=== PATIENT | male | born 1975 | race Hispanic/Latino ===

== ENCOUNTER 2021-01-30 13:28 | Inpatient (IN) | payer OTHER ==
[~2021-01-30] VITALS: Ht 175.3 cm; Wt 98.1 kg
[2021-01-30 13:54] LABS: BASOPHILS % (AUTO) 0.4 % (0.0-5.0); HEMATOCRIT 45.4 % (42-54); LYMPHOCYTES % (AUTO) 6.1 % (21.0-51.0); MEAN CORPUSCULAR HEMOGLOBIN 27.9 pg (27.0-33.0); MEAN CORPUSCULAR HGB CONC 33.7 g/dL (32.0-36.0); MEAN CORPUSCULAR VOLUME 82.7 fL (79-99); MONOCYTES % (AUTO) 6.5 % (3.0-13.0); NEUTROPHILS % (AUTO) 86.6 % (40.0-77.0); PLATELET COUNT (AUTO) 353 K/uL (130-400); RED BLOOD CELL COUNT(AUTO) 5.49 MIL/uL (4.50-6.20); WHITE BLOOD COUNT (AUTO) 16.4 K/uL (4.8-10.8)
[2021-01-30 14:05] LABS: CARBON DIOXIDE 25 mmol/L (21-32); CHLORIDE 97 mmol/L (101-111); CREATININE 2.4 mg/dL (0.5-1.5); GLOMERULAR FILTR. RATE CALC 31 mL/min (>60); GLUCOSE,RANDOM 316 mg/dL (70-105); POTASSIUM 5.4 mmol/L (3.5-5.1); SODIUM SERUM 133 mmol/L (136-145); UREA NITROGEN, BLOOD 59 mg/dL (7-18)
[2021-01-30 14:25] LABS: ALANINE AMINOTRANSFERASE 22 U/L (12-78); ALBUMIN 4.5 g/dL (3.5-5.0); ASPARTATE AMINOTRANSFERASE 12 U/L (10-37); BILIRUBIN,TOTAL 0.5 mg/dL (0.2-1.0); CREATINE KINASE, TOTAL 101 U/L (21-232); LIPASE 241 U/L (114-286); MYOGLOBIN 111 ng/mL (10-92); TOTAL PROTEIN, SERUM 9.3 g/dL (6.0-8.3); TROPONIN I < 0.04 ng/mL (0.00-0.06)
[2021-01-30 14:26] VITALS: BP 136/84
[2021-01-30] MEDS ORDERED: CHLORPROMAZINE HCL 25 MG/ML 1ML AMP IM SCH (15:00)
[2021-01-30] MEDS ORDERED: FAMOTIDINE 20MG VIAL IV ONE (15:00)
[2021-01-30] MEDS ORDERED: 0.9%NACL 1000ML 1,000 ML IV ONE (15:00)
[2021-01-30] MEDS ORDERED: ONDANSETRON 4MG INJ IVP ONE (15:00)
[2021-01-30 15:02] LABS: INR 1.03 (0.85-1.15); PROTHROMBIN TIME 11.2 SEC (9.6-11.6)
[2021-01-30 15:16] LABS: AMPHET/METH SCREEN,URINE NEGATIVE (NEGATIVE); BARBITURATE SCREEN, URINE NEGATIVE (NEGATIVE); BENZODIAZEPINES SCREEN,URINE NEGATIVE (NEGATIVE); CANNABINOID SCREEN,URINE NEGATIVE (NEGATIVE); COCAINE SCREEN,URINE POSITIVE (NEGATIVE); OPIATE SCREEN,URINE NEGATIVE (NEGATIVE); PHENCYCLIDINE SCREEN,URINE NEGATIVE (NEGATIVE)
[2021-01-30 16:20] VITALS: BP 102/52
[2021-01-30 18:52] VITALS: BP 94/53
[2021-01-30] MEDS ORDERED: ACETAMINOPHEN 325 MG TAB PO PRN ×2 (19:30)
[2021-01-30] MEDS ORDERED: ONDANSETRON 4MG INJ IV PRN (19:30)
[2021-01-30 20:01] LABS: HEMOGLOBIN A1C 10.6 % (4.0-6.0)
[2021-01-30 20:07] VITALS: BP 100/62
[2021-01-30 20:09] LABS: CREATINE KINASE, TOTAL 353 U/L (21-232); LIPASE 136 U/L (114-286); MYOGLOBIN 472 ng/mL (10-92); TROPONIN I < 0.04 ng/mL (0.00-0.06)
[2021-01-30] MEDS: 0.9%NACL 1000ML 1,000 ML IV SCH (20:43)
[2021-01-30 21:39] LABS: PROTEIN,URINE RANDOM 50.5 mg/dL (0-11.9)
[2021-01-30] MEDS: INSULIN HUMULIN R 100 UNIT/ML 3ML SQ SCH (22:00)
[2021-01-30] MEDS: FAMOTIDINE 20MG VIAL IV SCH (22:00)
[2021-01-30 23:53] VITALS: BP 97/77
[2021-01-31] MEDS: 0.9%NACL 1000ML 1,000 ML IV SCH ×4 (02:42→21:11)
[2021-01-31 02:47] VITALS: BP 115/72
[2021-01-31 03:59] VITALS: BP 137/72
[2021-01-31] MEDS: INSULIN HUMULIN R 100 UNIT/ML 3ML SQ SCH ×4 (06:44→21:11)
[2021-01-31 07:13] LABS: CREATINE KINASE, TOTAL 310 U/L (21-232); MYOGLOBIN 115 ng/mL (10-92); TROPONIN I < 0.04 ng/mL (0.00-0.06)
[2021-01-31 08:38] VITALS: BP 135/87
[2021-01-31] MEDS: ENOXAPARIN SODIUM 30 MG/0.3 ML SQ SCH (09:18)
[2021-01-31 09:42] LABS: BASOPHILS % (AUTO) 0.6 % (0.0-5.0); EOSINOPHILS % (AUTO) 0.5 % (0.0-8.0); HEMATOCRIT 38.7 % (42-54); LYMPHOCYTES % (AUTO) 21.3 % (21.0-51.0); MEAN CORPUSCULAR HEMOGLOBIN 27.9 pg (27.0-33.0); MEAN CORPUSCULAR HGB CONC 32.8 g/dL (32.0-36.0); MEAN CORPUSCULAR VOLUME 85.1 fL (79-99); MONOCYTES % (AUTO) 9.8 % (3.0-13.0); NEUTROPHILS % (AUTO) 67.5 % (40.0-77.0); PLATELET COUNT (AUTO) 270 K/uL (130-400); RED BLOOD CELL COUNT(AUTO) 4.55 MIL/uL (4.50-6.20); RED CELL DISTRIBUTION WIDTH 13.1 % (11.0-15.5); WHITE BLOOD COUNT (AUTO) 11.9 K/uL (4.8-10.8)
[2021-01-31 09:52] LABS: CREATININE 1.6 mg/dL (0.5-1.5); POTASSIUM 4.7 mmol/L (3.5-5.1)
[2021-01-31] MEDS: INSULIN GLARGINE 100 UNITS/ML 10 ML VIAL SQ SCH (11:12)
[2021-01-31 11:40] LABS: CREATINE KINASE, TOTAL 264 U/L (21-232); MYOGLOBIN 72 ng/mL (10-92); TROPONIN I < 0.04 ng/mL (0.00-0.06)
[2021-01-31 12:01] VITALS: BP 136/84
[2021-01-31 16:25] VITALS: BP 158/90
[2021-01-31] MEDS ORDERED: LACTULOSE 20 GM/30 ML UDCUP PO PRN (17:00)
[2021-01-31 19:20] VITALS: BP 127/80
[2021-01-31] MEDS: FAMOTIDINE 20MG VIAL IV SCH (21:11)
[2021-01-31] MEDS ORDERED: LOVA20TA3 PO (23:20)
[2021-01-31] MEDS ORDERED: LISI-809 PO (23:20)
[2021-01-31] MEDS ORDERED: INSU10VI3 SQ (23:20)
[2021-01-31] MEDS ORDERED: METF-446 PO (23:20)
[2021-02-01] VITALS (8 sets, daily range): BP systolic 127–171; BP diastolic 74–91
[2021-02-01] MEDS ORDERED: HYDRALAZINE 20MG/ML VIAL ONE (00:50)
[2021-02-01] MEDS ORDERED: HYDRALAZINE 20MG/ML VIAL IM PRN (01:00)
[2021-02-01] MEDS: 0.9%NACL 1000ML 1,000 ML IV SCH ×2 (04:58→11:30)
[2021-02-01 05:21] LABS: BASOPHILS % (AUTO) 0.5 % (0.0-5.0); EOSINOPHILS % (AUTO) 0.5 % (0.0-8.0); HEMATOCRIT 39.7 % (42-54); LYMPHOCYTES % (AUTO) 20.5 % (21.0-51.0); MEAN CORPUSCULAR HEMOGLOBIN 27.6 pg (27.0-33.0); MEAN CORPUSCULAR VOLUME 83.6 fL (79-99); MONOCYTES % (AUTO) 10.1 % (3.0-13.0); NEUTROPHILS % (AUTO) 68.1 % (40.0-77.0); PLATELET COUNT (AUTO) 284 K/uL (130-400); RED BLOOD CELL COUNT(AUTO) 4.75 MIL/uL (4.50-6.20); RED CELL DISTRIBUTION WIDTH 12.7 % (11.0-15.5); WHITE BLOOD COUNT (AUTO) 12.9 K/uL (4.8-10.8)
[2021-02-01 05:34] LABS: CREATININE 1.1 mg/dL (0.5-1.5); PHOSPHORUS 2.6 mg/dL (2.5-4.9); POTASSIUM 4.2 mmol/L (3.5-5.1)
[2021-02-01] MEDS: INSULIN HUMULIN R 100 UNIT/ML 3ML SQ SCH ×4 (06:25→21:11)
[2021-02-01] MEDS: ENOXAPARIN SODIUM 30 MG/0.3 ML SQ SCH (08:03)
[2021-02-01] MEDS: INSULIN GLARGINE 100 UNITS/ML 10 ML VIAL SQ SCH (08:06)
[2021-02-01] MEDS ORDERED: POLYETHYLENE GLYCOL 3350 17 GM POWD.PACK PO SCH (11:00)
[2021-02-01] MEDS ORDERED: AMLODIPINE 5 MG TAB PO SCH (11:00)
[2021-02-01] MEDS: CEFTRIAXONE 1G VIAL IVP SCH (17:24)
[2021-02-01] MEDS ORDERED: BACLOFEN 10 MG TABLET PO SCH (18:30)
[2021-02-01] MEDS: BACLOFEN 10 MG TABLET PO SCH (21:08)
[2021-02-01] MEDS: FAMOTIDINE 20MG VIAL IV SCH (21:08)
[2021-02-01] MEDS: SIMVASTATIN 20 MG TABLET PO SCH (21:08)
[2021-02-02 04:44] VITALS: BP 129/87
[2021-02-02] MEDS: INSULIN HUMULIN R 100 UNIT/ML 3ML SQ SCH ×4 (06:41→22:12)
[2021-02-02 07:00] VITALS: BP 142/84
[2021-02-02] MEDS: INSULIN GLARGINE 100 UNITS/ML 10 ML VIAL SQ SCH (09:51)
[2021-02-02] MEDS: AMLODIPINE 5 MG TAB PO SCH (09:55)
[2021-02-02] MEDS: BACLOFEN 10 MG TABLET PO SCH ×2 (09:55→22:10)
[2021-02-02] MEDS: LISINOPRIL 5 MG TABLET PO SCH (09:55)
[2021-02-02] MEDS: ENOXAPARIN SODIUM 30 MG/0.3 ML SQ SCH (10:00)
[2021-02-02 11:00] VITALS: BP 137/84
[2021-02-02 15:00] VITALS: BP 125/77
[2021-02-02] MEDS: CEFTRIAXONE 1G VIAL IVP SCH (17:13)
[2021-02-02 19:56] VITALS: BP 147/82
[2021-02-02] MEDS ORDERED: METFORMIN HCL 500 MG TABLET PO ONE (20:00)
[2021-02-02] MEDS ORDERED: METFORMIN HCL 500 MG TABLET ONE (22:06)
[2021-02-02] MEDS: FAMOTIDINE 20MG VIAL IV SCH (22:10)
[2021-02-02] MEDS: SIMVASTATIN 20 MG TABLET PO SCH (22:10)
[2021-02-02 23:48] VITALS: BP 131/84
[2021-02-03 04:02] VITALS: BP 133/81
[2021-02-03 06:34] LABS: BASOPHILS % (AUTO) 0.7 % (0.0-5.0); EOSINOPHILS % (AUTO) 0.8 % (0.0-8.0); HEMATOCRIT 40.8 % (42-54); LYMPHOCYTES % (AUTO) 23.9 % (21.0-51.0); MEAN CORPUSCULAR HEMOGLOBIN 27.8 pg (27.0-33.0); MEAN CORPUSCULAR HGB CONC 32.1 g/dL (32.0-36.0); MEAN CORPUSCULAR VOLUME 86.4 fL (79-99); MONOCYTES % (AUTO) 8.4 % (3.0-13.0); NEUTROPHILS % (AUTO) 65.7 % (40.0-77.0); PLATELET COUNT (AUTO) 267 K/uL (130-400); RED BLOOD CELL COUNT(AUTO) 4.72 MIL/uL (4.50-6.20); RED CELL DISTRIBUTION WIDTH 12.6 % (11.0-15.5); WHITE BLOOD COUNT (AUTO) 10.2 K/uL (4.8-10.8)
[2021-02-03 06:39] LABS: MAGNESIUM 1.5 mg/dL (1.80-2.40); POTASSIUM 4.3 mmol/L (3.5-5.1)
[2021-02-03] MEDS: INSULIN HUMULIN R 100 UNIT/ML 3ML SQ SCH (07:20)
[2021-02-03] MEDS ORDERED: METFORMIN HCL 500 MG TABLET PO SCH (08:00)
[2021-02-03] MEDS: INSULIN GLARGINE 100 UNITS/ML 10 ML VIAL SQ SCH (08:23)
[2021-02-03] MEDS: LISINOPRIL 5 MG TABLET PO SCH (08:24)
[2021-02-03] MEDS: BACLOFEN 10 MG TABLET PO SCH (08:24)
[2021-02-03] MEDS: ENOXAPARIN SODIUM 30 MG/0.3 ML SQ SCH (08:25)
[2021-02-03] MEDS: AMLODIPINE 5 MG TAB PO SCH (08:25)
[2021-02-03 08:31] VITALS: BP 139/78
[2021-02-03] MEDS ORDERED: MAGNESIUM 2GM PREMIX 50ML 50 ML IV PRN (09:00)
[2021-02-03] MEDS ORDERED: MAGNESIUM OXIDE 400 MG TABLET PO SCH (09:00)
[2021-02-03] MEDS ORDERED: MAGN400C PO (11:26)
[2021-02-03 11:39] VITALS: BP 129/85
[2021-02-03] MEDS ORDERED: AMOX-426 PO (11:44)
== END 2021-02-03 12:54 | disposition home or self-care (01) | DRG 683 ==
LOC: EDH 13:28 → EDHIP 13:29 → UNDOADMIN 13:29 → EDHIP 01-31 03:47 → 4DH 01-31 03:47
PROVIDERS: ADMIT Internal Medicine; ATTEND Internal Medicine
DX: N17.9 Acute kidney failure, unspecified (principal); E87.1 Hypo-osmolality and hyponatremia; D72.829 Elevated white blood cell count, unspecified; E87.5 Hyperkalemia; E11.65 Type 2 diabetes mellitus with hyperglycemia; E11.22 Type 2 diabetes mellitus with diabetic chronic kidney disease; I12.9 Hypertensive chronic kidney disease with stage 1 through stage 4 chronic kidney disease, or unspecified chronic kidney disease; N18.9 Chronic kidney disease, unspecified; F14.10 Cocaine abuse, uncomplicated; E86.1 Hypovolemia; E87.8 Other disorders of electrolyte and fluid balance, not elsewhere classified; I16.0 Hypertensive urgency; N41.9 Inflammatory disease of prostate, unspecified; E83.42 Hypomagnesemia; E86.0 Dehydration
CPT/HCPCS: 36415; 71045; 74176; 76770; 80048; 80053; 80305; 82306; 82550; 82570; 82948; 83036; 83605; 83690; 83735; 83874; 83970; 84100; 84145; 84156; 84300; 84484; 84550; 85025; 85610; 86140; 87077; 87088; 87186; 93005; 93925; G0378; J0360; J0696; J1650; J1815; J2405; J3230; J3475; J3490; J7030

== ENCOUNTER 2022-12-27 20:48 | Emergency (ER) | payer SELFPAY ==
[~2022-12-27] VITALS: Ht 167.6 cm; Wt 104.3 kg
[~2022-12-27 20:48] MED LIST: AMOX-426 PO; CHLO25TA68 PO; DICL50TA9 PO; DICY20TA2 PO; GABA300C PO; INSU10VI3 SQ; LISI20TA24 PO; LISI5TAB21 PO; LOVA20TA3 PO; MAGN400C PO; METF-446 PO; PANT40TA54 PO
[2022-12-27 21:03] LABS: BASOPHILS % (AUTO) 0.6 % (0.0-5.0); EOSINOPHILS % (AUTO) 0.3 % (0.0-8.0); HEMATOCRIT 44.4 % (42-54); LYMPHOCYTES % (AUTO) 17.5 % (21.0-51.0); MEAN CORPUSCULAR HEMOGLOBIN 27.6 pg (27.0-33.0); MEAN CORPUSCULAR VOLUME 86.2 fL (79-99); MONOCYTES % (AUTO) 6.2 % (3.0-13.0); NEUTROPHILS % (AUTO) 74.9 % (40.0-77.0); PLATELET COUNT (AUTO) 298 K/uL (130-400); RED BLOOD CELL COUNT(AUTO) 5.15 MIL/uL (4.50-6.20); RED CELL DISTRIBUTION WIDTH 13.7 % (11.0-15.5); WHITE BLOOD COUNT (AUTO) 12.8 K/uL (4.8-10.8)
[2022-12-27 21:14] LABS: CREATININE 1.1 mg/dL (0.5-1.5); POTASSIUM 4.2 mmol/L (3.5-5.1)
[2022-12-27 21:19] LABS: ALBUMIN 3.5 g/dL (3.5-5.0); TOTAL PROTEIN, SERUM 7.9 g/dL (6.0-8.3)
[2022-12-27] MEDS ORDERED: NITROGLYCERIN 0.4 MG SL TAB SL PRN (22:00)
[2022-12-27] MEDS ORDERED: ASPIRIN 325MG TAB PO ONE (22:00)
[2022-12-27] MEDS ORDERED: METOCLOPRAMIDE 10 MG TABLET PO ONE (22:00)
[2022-12-27 22:13] LABS: LIPASE 125 U/L (114-286)
[2022-12-27] MEDS ORDERED: MAG/ALUM/SIMETH 30 ML UDCUP ONE (22:57)
[2022-12-27] MEDS ORDERED: LIDOCAINE HCL 2% VISCOUS 15 ML UDCUP PO ONE (23:00)
[2022-12-27] MEDS ORDERED: 0.9%NACL 1000ML 1,000 ML IV ONE (23:00)
[2022-12-27] MEDS ORDERED: NITROGLYCERIN 1GM OINT 1 INCH/1GM TD ONE (23:00)
[2022-12-27] MEDS ORDERED: FAMOTIDINE 20MG VIAL IV ONE (23:00)
[2022-12-27] MEDS ORDERED: INSULIN HUMULIN R 100 UNIT/ML 3ML IV ONE (23:30)
[2022-12-28 00:54] LABS: APPEARANCE,URINE CLEAR (CLEAR); BILIRUBIN,URINE NEGATIVE (NEGATIVE); COLOR,URINE LIGHT-YELLOW (YELLOW); GLUCOSE, URINE (UA) >=1000 mg/dL (NEGATIVE); KETONES,URINE NEGATIVE (NEGATIVE); LEUKOCYTE ESTERASE ,URINE NEGATIVE Leu/uL (NEGATIVE); NITRATE,URINE NEGATIVE (NEGATIVE); OCCULT BLOOD,URINE NEGATIVE (NEGATIVE); PROTEIN,URINE NEGATIVE (NEGATIVE); UROBILINOGEN,URINE 0.2 mg/dL (0.2-1.0)
[2022-12-28 00:59] LABS: MUCUS,URINE RARE LPF (None Seen); RBC,URINE 0-1 /HPF (0-1); SQUAMOUS EPITHELIAL CELL,UR RARE /HPF (0-2); WBC,URINE 0-1 /HPF (0-1)
[2022-12-28 01:11] LABS: AMPHET/METH SCREEN,URINE NEGATIVE (NEGATIVE); BARBITURATE SCREEN, URINE NEGATIVE (NEGATIVE); BENZODIAZEPINES SCREEN,URINE NEGATIVE (NEGATIVE); CANNABINOID SCREEN,URINE NEGATIVE (NEGATIVE); COCAINE SCREEN,URINE POSITIVE (NEGATIVE); OPIATE SCREEN,URINE NEGATIVE (NEGATIVE); PHENCYCLIDINE SCREEN,URINE NEGATIVE (NEGATIVE)
[2022-12-28] MEDS ORDERED: METO-296 PO (01:45)
[2022-12-28] MEDS ORDERED: NITR0.4T50 SL (01:45)
[2022-12-28] MEDS ORDERED: ASPI-1005 PO (01:45)
[2022-12-28] MEDS ORDERED: LORAZEPAM 2 MG/ML 1 ML VIAL IVP ONE (02:00)
[2022-12-28 03:12] VITALS: BP 125/80
== END 2022-12-28 03:15 | disposition home or self-care (01) ==
LOC: EDH 20:48
DX: F14.90 Cocaine use, unspecified, uncomplicated (principal); I20.8 Other forms of angina pectoris; I10 Essential (primary) hypertension; E11.9 Type 2 diabetes mellitus without complications; E78.00 Pure hypercholesterolemia, unspecified; F17.200 Nicotine dependence, unspecified, uncomplicated; Z90.49 Acquired absence of other specified parts of digestive tract; Z98.890 Other specified postprocedural states
CPT/HCPCS: 99285; 96374; 71045; 96361 ×2; 96375 ×2; 84484 ×2; 80053; 80305; 83690; 85025; 36415; 93005 ×2; 81001; J1815; J3490; J7030; J2060

== ENCOUNTER 2023-01-26 21:03 | Emergency (ER) | payer OTHER ==
[~2023-01-26] VITALS: Ht 167.6 cm; Wt 94.3 kg
[~2023-01-26 21:03] MED LIST changes: +ASPI-1005 PO; +METO-296 PO; +NITR0.4T50 SL
[2023-01-26 23:02] VITALS: BP 110/54
[2023-01-26 23:32] LABS: APPEARANCE,URINE CLEAR (CLEAR); BILIRUBIN,URINE NEGATIVE (NEGATIVE); COLOR,URINE YELLOW (YELLOW); GLUCOSE, URINE (UA) >=1000 mg/dL (NEGATIVE); KETONES,URINE 5 mg/dL (NEGATIVE); LEUKOCYTE ESTERASE ,URINE 25 Leu/uL (NEGATIVE); NITRATE,URINE NEGATIVE (NEGATIVE); OCCULT BLOOD,URINE NEGATIVE (NEGATIVE); PH,URINE 5.5 (5.0-8.0); PROTEIN,URINE 50 mg/dL (NEGATIVE); UROBILINOGEN,URINE 0.2 mg/dL (0.2-1.0)
[2023-01-26 23:35] LABS: MUCUS,URINE RARE LPF (None Seen); SQUAMOUS EPITHELIAL CELL,UR RARE /HPF (0-2)
[2023-01-27] MEDS ORDERED: ONDANSETRON ODT 4MG TAB SL ONE (01:00)
[2023-01-27 01:22] LABS: BASOPHILS % (AUTO) 0.6 % (0.0-5.0); EOSINOPHILS % (AUTO) 0.1 % (0.0-8.0); LYMPHOCYTES % (AUTO) 11.1 % (21.0-51.0); MEAN CORPUSCULAR HEMOGLOBIN 28.1 pg (27.0-33.0); MEAN CORPUSCULAR HGB CONC 33.1 g/dL (32.0-36.0); MONOCYTES % (AUTO) 4.8 % (3.0-13.0); PLATELET COUNT (AUTO) 382 K/uL (130-400); RED BLOOD CELL COUNT(AUTO) 5.65 MIL/uL (4.50-6.20); RED CELL DISTRIBUTION WIDTH 13.6 % (11.0-15.5); WHITE BLOOD COUNT (AUTO) 13.9 K/uL (4.8-10.8)
[2023-01-27 01:30] LABS: CREATININE 1.7 mg/dL (0.5-1.5); POTASSIUM 4.4 mmol/L (3.5-5.1)
[2023-01-27 01:35] LABS: ALBUMIN 4.1 g/dL (3.5-5.0); TOTAL PROTEIN, SERUM 8.7 g/dL (6.0-8.3)
[2023-01-27] MEDS ORDERED: ONDANSETRON 4MG INJ IVP ONE (02:00)
[2023-01-27] MEDS ORDERED: 0.9%NACL 1000ML 1,000 ML IV ONE (02:00)
[2023-01-27] MEDS ORDERED: LIDOCAINE HCL 2% VISCOUS 15 ML UDCUP PO ONE (03:00)
[2023-01-27] MEDS ORDERED: LEVOFLOXACIN 500 MG TABLET PO STA (03:00)
[2023-01-27] MEDS ORDERED: MAG/ALUM/SIMETH 30 ML UDCUP PO ONE (03:00)
[2023-01-27] MEDS ORDERED: AZIT500T4 PO (03:12)
[2023-01-27] MEDS ORDERED: COMP10 PO (03:17)
[2023-01-27] MEDS ORDERED: AZITHROMYCIN 250 MG TABLET PO ONE (03:30)
== END 2023-01-27 03:34 | disposition home or self-care (01) ==
LOC: EDH 21:03
DX: A05.9 Bacterial foodborne intoxication, unspecified (principal); I10 Essential (primary) hypertension; E11.9 Type 2 diabetes mellitus without complications; E78.00 Pure hypercholesterolemia, unspecified; F17.200 Nicotine dependence, unspecified, uncomplicated; Z79.82 Long term (current) use of aspirin; Z79.84 Long term (current) use of oral hypoglycemic drugs; Z79.899 Other long term (current) drug therapy
CPT/HCPCS: 99284; 80053; 83690; 85025; 81001; 36415; 96374; J7030; J2405

== ENCOUNTER 2023-02-20 00:32 | Inpatient (IN) | payer OTHER ==
[~2023-02-20] VITALS: Ht 167.6 cm; Wt 92.1 kg
[~2023-02-20 00:32] MED LIST changes: +AZIT500T4 PO; +COMP10 PO
[2023-02-20 00:57] LABS: APPEARANCE,URINE CLEAR (CLEAR); BILIRUBIN,URINE NEGATIVE (NEGATIVE); COLOR,URINE YELLOW (YELLOW); GLUCOSE, URINE (UA) >=1000 mg/dL (NEGATIVE); KETONES,URINE 10 mg/dL (NEGATIVE); LEUKOCYTE ESTERASE ,URINE NEGATIVE Leu/uL (NEGATIVE); NITRATE,URINE NEGATIVE (NEGATIVE); PH,URINE 5.5 (5.0-8.0); PROTEIN,URINE 100 mg/dL (NEGATIVE); UROBILINOGEN,URINE 0.2 mg/dL (0.2-1.0)
[2023-02-20 00:58] LABS: ADD UA MICROSCOPIC YES
[2023-02-20] MEDS ORDERED: NITROGLYCERIN 1GM OINT 1 INCH/1GM TD ONE ×2 (00:58→01:00)
[2023-02-20] MEDS ORDERED: MORPHINE 4 MG SYG ONE (00:58)
[2023-02-20] MEDS ORDERED: PANTOPRAZOLE 40 MG/VIAL ONE (00:58)
[2023-02-20 00:59] LABS: MUCUS,URINE RARE LPF (None Seen); SQUAMOUS EPITHELIAL CELL,UR RARE /HPF (0-2)
[2023-02-20] MEDS ORDERED: ONDANSETRON 4MG INJ IVP ONE (01:00)
[2023-02-20] MEDS ORDERED: PANTOPRAZOLE 40 MG/VIAL IVP ONE (01:00)
[2023-02-20] MEDS ORDERED: MORPHINE 4 MG SYG IVP ONE (01:00)
[2023-02-20] MEDS ORDERED: 0.9%NACL 1000ML 1,000 ML IV ONE ×3 (01:00→03:30)
[2023-02-20 01:05] LABS: BASOPHILS # (AUTO) 0.07 K/uL (0.00-0.20); BASOPHILS % (AUTO) 0.5 % (0.0-5.0); EOSINOPHILS # (AUTO) 0.02 K/uL (0.00-0.70); EOSINOPHILS % (AUTO) 0.1 % (0.0-8.0); HEMATOCRIT 47.2 % (42-54); IMMATURE GRANULOCYTE ABSOLUTE 0.11 K/uL (0-1); LYMPHOCYTES # (AUTO) 1.3 K/uL (1.0-4.8); LYMPHOCYTES % (AUTO) 8.8 % (21.0-51.0); MEAN CORPUSCULAR HEMOGLOBIN 28.1 pg (27.0-33.0); MEAN CORPUSCULAR HGB CONC 34.3 g/dL (32.0-36.0); MEAN CORPUSCULAR VOLUME 81.8 fL (79-99); MONOCYTES # (AUTO) 0.7 K/uL (0.1-1.0); MONOCYTES % (AUTO) 4.8 % (3.0-13.0); NEUTROPHILS # (AUTO) 12.3 K/uL (1.8-7.7); PLATELET COUNT (AUTO) 355 K/uL (130-400); RED BLOOD CELL COUNT(AUTO) 5.77 MIL/uL (4.50-6.20); RED CELL DISTRIBUTION WIDTH 13.5 % (11.0-15.5); WHITE BLOOD COUNT (AUTO) 14.4 K/uL (4.8-10.8)
[2023-02-20 01:10] LABS: AMPHET/METH SCREEN,URINE NEGATIVE (NEGATIVE); BARBITURATE SCREEN, URINE NEGATIVE (NEGATIVE); BENZODIAZEPINES SCREEN,URINE NEGATIVE (NEGATIVE); CANNABINOID SCREEN,URINE POSITIVE (NEGATIVE); COCAINE SCREEN,URINE POSITIVE (NEGATIVE); OPIATE SCREEN,URINE NEGATIVE (NEGATIVE); PHENCYCLIDINE SCREEN,URINE NEGATIVE (NEGATIVE)
[2023-02-20 01:15] LABS: CREATININE 1.4 mg/dL (0.5-1.5); POTASSIUM 4.3 mmol/L (3.5-5.1); WBC MORPHOLOGY CONSISTENT W/DIFF
[2023-02-20 01:20] LABS: BILIRUBIN,TOTAL 0.4 mg/dL (0.2-1.0); TOTAL PROTEIN, SERUM 8.8 g/dL (6.0-8.3)
[2023-02-20] MEDS ORDERED: PROMETHAZINE HCL 25 MG/ML 1ML AMPULE IM PRN (03:30)
[2023-02-20] MEDS ORDERED: ACETAMINOPHEN 325 MG TAB PO PRN ×2 (05:00)
[2023-02-20] MEDS ORDERED: ONDANSETRON 4MG INJ IV PRN (05:00)
[2023-02-20] MEDS: 0.9%NACL 1000ML 1,000 ML IV SCH ×3 (05:07→20:19)
[2023-02-20] MEDS ORDERED: DEXTROSE 50%-WATER 50 ML DISP.SYRIN IV PRN (05:30)
[2023-02-20] MEDS ORDERED: GLUCAGON 1MG KIT 1 MG ML IM PRN (05:30)
[2023-02-20] MEDS ORDERED: PROMETHAZINE HCL 25 MG/ML 1ML AMPULE IM ONE (05:30)
[2023-02-20 05:40] VITALS: BP 156/91; PULSE 110; RESP 20
[2023-02-20] MEDS ORDERED: CEFTRIAXONE 2GM VIAL IVPB SCH (06:00)
[2023-02-20] MEDS ORDERED: NITROGLYCERIN 30 GM TUBE TD SCH (06:00)
[2023-02-20] MEDS ORDERED: KETOROLAC 15MG/ML VIAL (15MG/ML) IV PRN ×2 (06:30→08:00)
[2023-02-20] MEDS: NITROGLYCERIN 1GM OINT 1 INCH/1GM TD SCH ×3 (07:00→23:16)
[2023-02-20] MEDS ORDERED: INSULIN HUMULIN R 100 UNIT/ML 3ML SQ SCH (07:30)
[2023-02-20 07:41] LABS: INR 0.98 (0.85-1.15); PROTHROMBIN TIME 11.4 SEC (9.6-11.6)
[2023-02-20 07:43] LABS: PARTIAL THROMBOPLASTIN TIME 27.6 SEC (26.3-35.5)
[2023-02-20 07:49] LABS: HEMOGLOBIN A1C 10.5 % (4.0-6.0)
[2023-02-20 07:51] LABS: ALBUMIN 3.2 g/dL (3.5-5.0); BILIRUBIN,TOTAL 0.4 mg/dL (0.2-1.0); CREATININE 1.1 mg/dL (0.5-1.5); POTASSIUM 4.6 mmol/L (3.5-5.1); TOTAL PROTEIN, SERUM 7.3 g/dL (6.0-8.3)
[2023-02-20 07:56] LABS: BASOPHILS # (AUTO) 0.02 K/uL (0.00-0.20); BASOPHILS % (AUTO) 0.2 % (0.0-5.0); CRP QUANTITATIVE 19.6 mg/L (0.00-9.0); HEMATOCRIT 40.1 % (42-54); IMMATURE GRANULOCYTE ABSOLUTE 0.08 K/uL (0-1); LYMPHOCYTES % (AUTO) 7.3 % (21.0-51.0); MEAN CORPUSCULAR HEMOGLOBIN 28.5 pg (27.0-33.0); MEAN CORPUSCULAR HGB CONC 34.2 g/dL (32.0-36.0); MEAN CORPUSCULAR VOLUME 83.4 fL (79-99); MONOCYTES # (AUTO) 0.4 K/uL (0.1-1.0); NEUTROPHILS # (AUTO) 11.8 K/uL (1.8-7.7); NEUTROPHILS % (AUTO) 88.9 % (40.0-77.0); PLATELET COUNT (AUTO) 285 K/uL (130-400); RED BLOOD CELL COUNT(AUTO) 4.81 MIL/uL (4.50-6.20); RED CELL DISTRIBUTION WIDTH 13.5 % (11.0-15.5); WHITE BLOOD COUNT (AUTO) 13.3 K/uL (4.8-10.8)
[2023-02-20 08:00] VITALS: BP 164/102; PULSE 110; RESP 18; O2SAT 98
[2023-02-20] MEDS ORDERED: PHARMACY COMMUNICATION MISC SCH (08:00)
[2023-02-20] MEDS: METOCLOPRAMIDE 10 MG/2 ML VIAL IVP SCH ×3 (08:52→20:19)
[2023-02-20] MEDS: CEFTRIAXONE 2GM VIAL IVPB SCH (08:54)
[2023-02-20] MEDS ORDERED: PANTOPRAZOLE 40 MG/VIAL IVP SCH (09:00)
[2023-02-20] MEDS: ASPIRIN 81 MG EC TAB PO SCH (09:00)
[2023-02-20] MEDS ORDERED: FAMOTIDINE 20MG VIAL IV SCH (09:00)
[2023-02-20] MEDS ORDERED: METOPROLOL TARTRATE 1 MG/ML 5ML VIAL IV PRN (10:30)
[2023-02-20 12:00] VITALS: BP_SYST 116; BP_SYST 158; BP_DIAS 72; BP_DIAS 89; PULSE 116; PULSE 74; RESP 16; RESP 17
[2023-02-20] MEDS: INSULIN HUMULIN R 100 UNIT/ML 3ML SQ SCH ×3 (12:08→23:28)
[2023-02-20] MEDS ORDERED: COMPOUND IV REFRIGERATED 1 EACH IVSOLN MISC PRN (12:30)
[2023-02-20] MEDS ORDERED: HYDRALAZINE 20MG/ML VIAL IV PRN (12:30)
[2023-02-20] MEDS: PANTOPRAZOLE 80 MG in 0.9%NACL 100ML IVP SCH ×2 (15:06→23:16)
[2023-02-20 16:00] VITALS: BP 143/83; PULSE 89; RESP 20
[2023-02-20 20:00] VITALS: BP 138/74; PULSE 92; RESP 18; O2SAT 99
[2023-02-20 23:09] VITALS: BP 159/98; PULSE 81; RESP 18
[2023-02-21] VITALS (8 sets, daily range): BP systolic 133–164; BP diastolic 79–98; PULSE 80–94; RESP 18–20; O2SAT 98
[2023-02-21] MEDS: INSULIN HUMULIN R 100 UNIT/ML 3ML SQ SCH ×3 (06:00→18:30)
[2023-02-21] MEDS: 0.9%NACL 1000ML 1,000 ML IV SCH ×3 (06:00→20:34)
[2023-02-21] MEDS: NITROGLYCERIN 1GM OINT 1 INCH/1GM TD SCH ×3 (07:00→21:55)
[2023-02-21] MEDS: METOCLOPRAMIDE 10 MG/2 ML VIAL IVP SCH ×3 (09:00→17:12)
[2023-02-21] MEDS: ASPIRIN 81 MG EC TAB PO SCH (09:00)
[2023-02-21] MEDS: CEFTRIAXONE 2GM VIAL IVPB SCH (09:00)
[2023-02-21 10:30] LABS: ALBUMIN 2.9 g/dL (3.5-5.0); BILIRUBIN,TOTAL 0.4 mg/dL (0.2-1.0); POTASSIUM 3.8 mmol/L (3.5-5.1); THYROID STIMULATING HORMONE 0.8 uIU/mL (0.36-3.74); TOTAL PROTEIN, SERUM 6.6 g/dL (6.0-8.3)
[2023-02-21] MEDS: PANTOPRAZOLE 80 MG in 0.9%NACL 100ML IVP SCH ×2 (11:40→20:00)
[2023-02-21 14:34] LABS: HEMATOCRIT 37.8 % (42-54); MEAN CORPUSCULAR HEMOGLOBIN 28.4 pg (27.0-33.0); MEAN CORPUSCULAR HGB CONC 33.6 g/dL (32.0-36.0); MEAN CORPUSCULAR VOLUME 84.6 fL (79-99); RED BLOOD CELL COUNT(AUTO) 4.47 MIL/uL (4.50-6.20); RED CELL DISTRIBUTION WIDTH 13.4 % (11.0-15.5); WHITE BLOOD COUNT (AUTO) 12.6 K/uL (4.8-10.8)
[2023-02-21 15:10] LABS: INR 0.98 (0.85-1.15); PROTHROMBIN TIME 11.4 SEC (9.6-11.6)
[2023-02-21 16:47] LABS: AMYLASE 38 U/L (25-115)
[2023-02-21] MEDS ORDERED: LORAZEPAM 2 MG/ML 1 ML VIAL IM SCH (20:00)
[2023-02-21] MEDS: CHLORDIAZEPOXIDE HCL 25 MG CAP PO SCH (20:32)
[2023-02-21] MEDS ORDERED: HONEY 1 APPL/ML TUBE TP PRN (23:00)
[2023-02-22] VITALS: BP 141/87; PULSE 84; RESP 18
[2023-02-22] MEDS: PANTOPRAZOLE 80 MG in 0.9%NACL 100ML IVP SCH (01:01)
[2023-02-22] MEDS: CHLORDIAZEPOXIDE HCL 25 MG CAP PO SCH ×2 (03:49→11:35)
[2023-02-22] MEDS: 0.9%NACL 1000ML 1,000 ML IV SCH (03:56)
[2023-02-22 03:59] VITALS: BP 142/90; PULSE 93; RESP 20
[2023-02-22 05:47] LABS: BASOPHILS # (AUTO) 0.06 K/uL (0.00-0.20); BASOPHILS % (AUTO) 0.6 % (0.0-5.0); EOSINOPHILS # (AUTO) 0.08 K/uL (0.00-0.70); EOSINOPHILS % (AUTO) 0.8 % (0.0-8.0); HEMATOCRIT 38.4 % (42-54); IMMATURE GRANULOCYTE ABSOLUTE 0.04 K/uL (0-1); LYMPHOCYTES # (AUTO) 2.3 K/uL (1.0-4.8); LYMPHOCYTES % (AUTO) 22.3 % (21.0-51.0); MEAN CORPUSCULAR HEMOGLOBIN 28.2 pg (27.0-33.0); MEAN CORPUSCULAR HGB CONC 32.6 g/dL (32.0-36.0); MEAN CORPUSCULAR VOLUME 86.5 fL (79-99); MONOCYTES # (AUTO) 0.9 K/uL (0.1-1.0); MONOCYTES % (AUTO) 8.5 % (3.0-13.0); NEUTROPHILS # (AUTO) 6.8 K/uL (1.8-7.7); NEUTROPHILS % (AUTO) 67.4 % (40.0-77.0); PLATELET COUNT (AUTO) 265 K/uL (130-400); RED BLOOD CELL COUNT(AUTO) 4.44 MIL/uL (4.50-6.20); RED CELL DISTRIBUTION WIDTH 13.3 % (11.0-15.5); WHITE BLOOD COUNT (AUTO) 10.1 K/uL (4.8-10.8)
[2023-02-22 06:27] LABS: ALBUMIN 2.7 g/dL (3.5-5.0); BILIRUBIN,TOTAL 0.4 mg/dL (0.2-1.0); CREATININE 0.9 mg/dL (0.5-1.5); POTASSIUM 3.9 mmol/L (3.5-5.1); TOTAL PROTEIN, SERUM 6.5 g/dL (6.0-8.3)
[2023-02-22] MEDS: INSULIN HUMULIN R 100 UNIT/ML 3ML SQ SCH ×3 (06:30→11:56)
[2023-02-22] MEDS: NITROGLYCERIN 1GM OINT 1 INCH/1GM TD SCH (06:32)
[2023-02-22] MEDS: METOCLOPRAMIDE 10 MG/2 ML VIAL IVP SCH ×2 (06:38→11:34)
[2023-02-22 08:00] VITALS: BP 144/89; PULSE 91; RESP 18
[2023-02-22 08:10] VITALS: O2SAT 99
[2023-02-22] MEDS: ASPIRIN 81 MG EC TAB PO SCH (08:54)
[2023-02-22] MEDS: CEFTRIAXONE 2GM VIAL IVPB SCH (08:54)
[2023-02-22] MEDS ORDERED: HONEY 1 APPL/ML TUBE TP SCH (09:00)
[2023-02-22 12:03] VITALS: BP 153/101; PULSE 94; RESP 18
[2023-02-22] MEDS ORDERED: LISI20TA24 PO (12:33)
[2023-02-22] MEDS ORDERED: PANT40TA54 PO (12:33)
[2023-02-22] MEDS ORDERED: METF-446 PO (12:33)
[2023-02-22] MEDS ORDERED: METO-296 PO (12:33)
== END 2023-02-22 15:45 | disposition home or self-care (01) | DRG 313 ==
LOC: EDH 00:32 → EDHIP 00:33 → 3BH 05:40
PROVIDERS: ADMIT Hospitalist; ATTEND Hospitalist
DX: R07.89 Other chest pain (principal); E11.65 Type 2 diabetes mellitus with hyperglycemia; F10.20 Alcohol dependence, uncomplicated; E11.43 Type 2 diabetes mellitus with diabetic autonomic (poly)neuropathy; K31.84 Gastroparesis; E78.00 Pure hypercholesterolemia, unspecified; E86.0 Dehydration; F17.210 Nicotine dependence, cigarettes, uncomplicated; I10 Essential (primary) hypertension; S31.819A Unspecified open wound of right buttock, initial encounter; X58.XXXA Exposure to other specified factors, initial encounter; Z79.84 Long term (current) use of oral hypoglycemic drugs; Z83.3 Family history of diabetes mellitus
CPT/HCPCS: 36415; 71045; 74176; 78264; 80053; 80061; 80305; 81001; 82150; 82948; 83036; 83615; 83690; 84145; 84443; 84484; 85025; 85027; 85610; 85651; 85730; 86140; 87040; 87070; 87076; 87077; 87186; 93005; A9541; C9113; G0378; J0696; J1815; J2060; J2270; J2405; J2550; J2765

== ENCOUNTER 2023-05-06 11:37 | Emergency (ER) | payer BC ==
[~2023-05-06] VITALS: Ht 172.7 cm; Wt 95.3 kg
[~2023-05-06 11:37] MED LIST changes: -AMOX-426 PO; -AZIT500T4 PO; -COMP10 PO; -DICY20TA2 PO; -LISI5TAB21 PO; -MAGN400C PO; +ONDA4TAB10 PO; +PANT40TA PO
[2023-05-06] MEDS ORDERED: ONDANSETRON 4MG INJ IVP ONE (12:00)
[2023-05-06] MEDS ORDERED: 0.9%NACL 1000ML 1,000 ML IV ONE (12:00)
[2023-05-06] MEDS ORDERED: KETOROLAC 60 MG VIAL (30MG/ML) IM ONE (12:00)
[2023-05-06] MEDS ORDERED: KETOROLAC 30MG VIAL (30MG/ML) IVP ONE (12:00)
[2023-05-06] MEDS ORDERED: FAMOTIDINE 20MG VIAL IV ONE (12:00)
[2023-05-06 12:13] LABS: BASOPHILS # (AUTO) 0.06 K/uL (0.00-0.20); BASOPHILS % (AUTO) 0.7 % (0.0-5.0); EOSINOPHILS % (AUTO) 1.1 % (0.0-8.0); HEMATOCRIT 46.1 % (42-54); IMMATURE GRANULOCYTE ABSOLUTE 0.03 K/uL (0-1); LYMPHOCYTES # (AUTO) 2.4 K/uL (1.0-4.8); MEAN CORPUSCULAR HEMOGLOBIN 28.3 pg (27.0-33.0); MEAN CORPUSCULAR HGB CONC 33.4 g/dL (32.0-36.0); MEAN CORPUSCULAR VOLUME 84.7 fL (79-99); MONOCYTES # (AUTO) 0.7 K/uL (0.1-1.0); NEUTROPHILS # (AUTO) 5.8 K/uL (1.8-7.7); NEUTROPHILS % (AUTO) 63.9 % (40.0-77.0); PLATELET COUNT (AUTO) 341 K/uL (130-400); RED BLOOD CELL COUNT(AUTO) 5.44 MIL/uL (4.50-6.20); RED CELL DISTRIBUTION WIDTH 13.2 % (11.0-15.5); WHITE BLOOD COUNT (AUTO) 9.1 K/uL (4.8-10.8)
[2023-05-06 12:15] LABS: ADD UA MICROSCOPIC YES
[2023-05-06 12:23] LABS: CREATININE 1.2 mg/dL (0.5-1.5); POTASSIUM 4.1 mmol/L (3.5-5.1)
[2023-05-06 12:27] LABS: ALBUMIN 3.7 g/dL (3.5-5.0); BILIRUBIN,TOTAL 0.3 mg/dL (0.2-1.0); TOTAL PROTEIN, SERUM 8.3 g/dL (6.0-8.3)
[2023-05-06 12:27] LABS: APPEARANCE,URINE TURBID (CLEAR); BACTERIA,URINE RARE /HPF (None Seen); BILIRUBIN,URINE NEGATIVE (NEGATIVE); COLOR,URINE LIGHT-ORANGE (YELLOW); GLUCOSE, URINE (UA) >=1000 mg/dL (NEGATIVE); KETONES,URINE NEGATIVE (NEGATIVE); LEUKOCYTE ESTERASE ,URINE NEGATIVE Leu/uL (NEGATIVE); NITRATE,URINE NEGATIVE (NEGATIVE); OCCULT BLOOD,URINE NEGATIVE (NEGATIVE); PROTEIN,URINE NEGATIVE (NEGATIVE); RBC,URINE 0-1 /HPF (0-1); UROBILINOGEN,URINE 0.2 mg/dL (0.2-1.0)
[2023-05-06 12:39] LABS: AMPHET/METH SCREEN,URINE NEGATIVE (NEGATIVE); BARBITURATE SCREEN, URINE NEGATIVE (NEGATIVE); BENZODIAZEPINES SCREEN,URINE NEGATIVE (NEGATIVE); CANNABINOID SCREEN,URINE NEGATIVE (NEGATIVE); COCAINE SCREEN,URINE POSITIVE (NEGATIVE); OPIATE SCREEN,URINE NEGATIVE (NEGATIVE); PHENCYCLIDINE SCREEN,URINE NEGATIVE (NEGATIVE)
[2023-05-06] MEDS ORDERED: IOHEXOL-350 75 ML VIAL IV ONE (13:21)
[2023-05-06 13:41] VITALS: BP 142/72; PULSE 92; RESP 13; O2SAT 99
[2023-05-06] MEDS ORDERED: LEVOFLOXACIN 500 MG TABLET PO SCH (14:30)
[2023-05-06] MEDS ORDERED: METRONIDAZOLE 500 MG TABLET PO SCH (14:30)
[2023-05-06] MEDS ORDERED: CIPR-278 PO (14:32)
[2023-05-06] MEDS ORDERED: ONDA4TAB10 PO (14:32)
[2023-05-06] MEDS ORDERED: METR-172 PO (14:32)
== END 2023-05-06 14:51 | disposition home or self-care (01) ==
LOC: EDH 11:37
DX: K57.32 Diverticulitis of large intestine without perforation or abscess without bleeding (principal); E11.9 Type 2 diabetes mellitus without complications; E78.00 Pure hypercholesterolemia, unspecified; F17.200 Nicotine dependence, unspecified, uncomplicated; I10 Essential (primary) hypertension; Z79.82 Long term (current) use of aspirin; Z79.84 Long term (current) use of oral hypoglycemic drugs; Z79.899 Other long term (current) drug therapy; Z90.49 Acquired absence of other specified parts of digestive tract
CPT/HCPCS: 99284; 74177; 96374; 96375; 96361; 84484; 80053; 80305; 83690; 85025; 81001; 36415; J3490; J7030; J2405; J1885; Q9967

== ENCOUNTER 2023-06-17 23:37 | Emergency (ER) | payer BC ==
[~2023-06-17] VITALS: Ht 175.3 cm; Wt 95.3 kg
[~2023-06-17 23:37] MED LIST changes: +CIPR-278 PO; +METR-172 PO
[2023-06-18] MEDS ORDERED: HALOPERIDOL INJ 5 MG/ML VIAL IV SCH
[2023-06-18 00:29] LABS: CREATININE 1.2 mg/dL (0.5-1.5); POTASSIUM 4.2 mmol/L (3.5-5.1)
[2023-06-18] MEDS ORDERED: METOCLOPRAMIDE 10 MG/2 ML VIAL IVP ONE (00:30)
[2023-06-18] MEDS ORDERED: LACTATED RINGERS 1000ML 1,000 ML IV ONE (00:30)
[2023-06-18] MEDS ORDERED: MORPHINE 2 MG SYG IVP ONE (00:30)
[2023-06-18] MEDS ORDERED: FAMOTIDINE 20MG VIAL IV ONE (00:30)
[2023-06-18 00:36] LABS: ALBUMIN 3.8 g/dL (3.5-5.0); BILIRUBIN,TOTAL 0.4 mg/dL (0.2-1.0); TOTAL PROTEIN, SERUM 8.2 g/dL (6.0-8.3)
[2023-06-18 00:42] LABS: B-TYPE NATRIURETIC PEPTIDE < 5 pg/mL (0-100)
[2023-06-18 00:49] LABS: BASOPHILS # (AUTO) 0.06 K/uL (0.00-0.20); BASOPHILS % (AUTO) 0.7 % (0.0-5.0); EOSINOPHILS # (AUTO) 0.07 K/uL (0.00-0.70); EOSINOPHILS % (AUTO) 0.8 % (0.0-8.0); HEMATOCRIT 47.2 % (42-54); IMMATURE GRANULOCYTE ABSOLUTE 0.05 K/uL (0-1); LYMPHOCYTES # (AUTO) 2.6 K/uL (1.0-4.8); LYMPHOCYTES % (AUTO) 29.2 % (21.0-51.0); MEAN CORPUSCULAR HEMOGLOBIN 28.6 pg (27.0-33.0); MEAN CORPUSCULAR HGB CONC 33.5 g/dL (32.0-36.0); MEAN CORPUSCULAR VOLUME 85.5 fL (79-99); MONOCYTES # (AUTO) 0.7 K/uL (0.1-1.0); MONOCYTES % (AUTO) 7.3 % (3.0-13.0); NEUTROPHILS # (AUTO) 5.5 K/uL (1.8-7.7); NEUTROPHILS % (AUTO) 61.4 % (40.0-77.0); PLATELET COUNT (AUTO) 317 K/uL (130-400); RED BLOOD CELL COUNT(AUTO) 5.52 MIL/uL (4.50-6.20); RED CELL DISTRIBUTION WIDTH 13.1 % (11.0-15.5); WHITE BLOOD COUNT (AUTO) 8.9 K/uL (4.8-10.8)
[2023-06-18 01:25] LABS: ADD UA MICROSCOPIC YES; APPEARANCE,URINE CLEAR (CLEAR); BILIRUBIN,URINE NEGATIVE (NEGATIVE); COLOR,URINE LIGHT-YELLOW (YELLOW); GLUCOSE, URINE (UA) >=1000 mg/dL (NEGATIVE); KETONES,URINE NEGATIVE (NEGATIVE); LEUKOCYTE ESTERASE ,URINE NEGATIVE Leu/uL (NEGATIVE); NITRATE,URINE NEGATIVE (NEGATIVE); OCCULT BLOOD,URINE NEGATIVE (NEGATIVE); PH,URINE 5.5 (5.0-8.0); PROTEIN,URINE NEGATIVE (NEGATIVE); UROBILINOGEN,URINE 0.2 mg/dL (0.2-1.0)
[2023-06-18 01:27] LABS: SQUAMOUS EPITHELIAL CELL,UR RARE /HPF (0-2); WBC,URINE 0-1 /HPF (0-1)
[2023-06-18 01:33] LABS: AMPHET/METH SCREEN,URINE NEGATIVE (NEGATIVE); BARBITURATE SCREEN, URINE NEGATIVE (NEGATIVE); BENZODIAZEPINES SCREEN,URINE NEGATIVE (NEGATIVE); CANNABINOID SCREEN,URINE POSITIVE (NEGATIVE); COCAINE SCREEN,URINE NEGATIVE (NEGATIVE); OPIATE SCREEN,URINE POSITIVE (NEGATIVE); PHENCYCLIDINE SCREEN,URINE NEGATIVE (NEGATIVE)
[2023-06-18 01:39] LABS: MAGNESIUM 1.7 mg/dL (1.80-2.40); THYROID STIMULATING HORMONE 1.09 uIU/mL (0.36-3.74)
[2023-06-18 01:50] VITALS: BP 132/78; PULSE 84; RESP 18; O2SAT 98
[2023-06-18] MEDS ORDERED: 0.9%NACL 1000ML 1,000 ML IV SCH (02:30)
[2023-06-18] MEDS ORDERED: LORAZEPAM 2 MG/ML 1 ML VIAL IVP ONE (02:30)
== END 2023-06-18 03:10 | disposition left against medical advice (07) ==
LOC: EDH 23:37
DX: F14.90 Cocaine use, unspecified, uncomplicated (principal); E11.9 Type 2 diabetes mellitus without complications; E78.00 Pure hypercholesterolemia, unspecified; I10 Essential (primary) hypertension; F17.200 Nicotine dependence, unspecified, uncomplicated; Z79.82 Long term (current) use of aspirin; Z79.84 Long term (current) use of oral hypoglycemic drugs; Z79.899 Other long term (current) drug therapy; Z90.49 Acquired absence of other specified parts of digestive tract
CPT/HCPCS: 99284; 71045; 84443; 82550; 83735; 84484; 80053; 83880; 80305; 83690; 85025; 81001; 36415; 93005; 96374; 96375; 74018; J7120; J3490; J2270; J1630; J2765

== ENCOUNTER 2023-12-31 13:22 | Inpatient (IN) | payer BC ==
[~2023-12-31] VITALS: Ht 175.3 cm; Wt 94.8 kg
[~2023-12-31 13:22] MED LIST changes: -CIPR-278 PO; +ONDA-243 PO; -ONDA4TAB10 PO
[2023-12-31 14:39] LABS: BASOPHILS # (AUTO) 0.06 K/uL (0.00-0.20); BASOPHILS % (AUTO) 0.6 % (0.0-5.0); EOSINOPHILS # (AUTO) 0.19 K/uL (0.00-0.70); EOSINOPHILS % (AUTO) 1.9 % (0.0-8.0); HEMATOCRIT 43.8 % (42-54); IMMATURE GRANULOCYTE ABSOLUTE 0.04 K/uL (0-1); LYMPHOCYTES # (AUTO) 1.9 K/uL (1.0-4.8); LYMPHOCYTES % (AUTO) 19.1 % (21.0-51.0); MEAN CORPUSCULAR HEMOGLOBIN 28.3 pg (27.0-33.0); MEAN CORPUSCULAR HGB CONC 33.1 g/dL (32.0-36.0); MEAN CORPUSCULAR VOLUME 85.4 fL (79-99); MONOCYTES # (AUTO) 0.8 K/uL (0.1-1.0); MONOCYTES % (AUTO) 7.5 % (3.0-13.0); NEUTROPHILS % (AUTO) 70.5 % (40.0-77.0); PLATELET COUNT (AUTO) 315 K/uL (130-400); RED BLOOD CELL COUNT(AUTO) 5.13 MIL/uL (4.50-6.20); RED CELL DISTRIBUTION WIDTH 13.7 % (11.0-15.5)
[2023-12-31 14:56] LABS: CREATININE 4.9 mg/dL (0.5-1.3); POTASSIUM 3.8 mmol/L (3.5-5.1)
[2023-12-31] MEDS: 0.9%NACL 1000ML 1,000 ML IV ONE (15:34)
[2023-12-31] MEDS: MORPHINE 2 MG SYG IVP ONE (15:42)
[2023-12-31] MEDS: ONDANSETRON 4MG INJ IVP ONE (15:42)
[2023-12-31] MEDS: 0.9%NACL 1000ML 1,000 ML IV SCH (16:06)
[2023-12-31] MEDS ORDERED: LISI5TAB21 PO (16:23)
[2023-12-31] MEDS ORDERED: IPRATROPIUM/ALBUTEROL SULFATE 3 ML SOLUTION IH PRN (16:30)
[2023-12-31 16:46] VITALS: PULSE 90; RESP 18; O2SAT 99
[2023-12-31 16:59] LABS: ALBUMIN 3.6 g/dL (3.5-5.0); BILIRUBIN,TOTAL 0.2 mg/dL (0.2-1.0); CREATININE 4.9 mg/dL (0.5-1.3); MAGNESIUM 1.8 mg/dL (1.80-2.40); POTASSIUM 3.6 mmol/L (3.5-5.1); TOTAL PROTEIN, SERUM 7.6 g/dL (6.0-8.3); URIC ACID 13.7 mg/dL (2.6-7.2)
[2023-12-31] MEDS ORDERED: PHARMACY COMMUNICATION MISC SCH (17:00)
[2023-12-31 17:04] LABS: THYROID STIMULATING HORMONE 0.5 uIU/mL (0.36-3.74)
[2023-12-31 18:01] LABS: APPEARANCE,URINE CLEAR (CLEAR); BILIRUBIN,URINE NEGATIVE (NEGATIVE); COLOR,URINE LIGHT-YELLOW (YELLOW); GLUCOSE, URINE (UA) NEGATIVE (NEGATIVE); KETONES,URINE NEGATIVE (NEGATIVE); LEUKOCYTE ESTERASE ,URINE NEGATIVE Leu/uL (NEGATIVE); NITRATE,URINE NEGATIVE (NEGATIVE); OCCULT BLOOD,URINE NEGATIVE (NEGATIVE); PROTEIN,URINE 10 mg/dL (NEGATIVE); UROBILINOGEN,URINE 0.2 mg/dL (0.2-1.0)
[2023-12-31 18:13] LABS: ADD UA MICROSCOPIC YES
[2023-12-31 18:25] LABS: BACTERIA,URINE RARE /HPF (None Seen); MUCUS,URINE RARE LPF (None Seen); OTHER CASTS, URINE 9 /LPF (None Seen); SQUAMOUS EPITHELIAL CELL,UR RARE /HPF (0-2); UNCLASSIFIED CRYSTAL 1 /HPF (None Seen)
[2023-12-31] MEDS: BUDESONIDE 0.5 MG/2 ML INH IH SCH (18:30)
[2023-12-31 18:33] VITALS: PULSE 94; RESP 17; O2SAT 98
[2023-12-31 19:02] LABS: AMPHET/METH SCREEN,URINE NEGATIVE (NEGATIVE); BARBITURATE SCREEN, URINE NEGATIVE (NEGATIVE); BENZODIAZEPINES SCREEN,URINE NEGATIVE (NEGATIVE); CANNABINOID SCREEN,URINE NEGATIVE (NEGATIVE); COCAINE SCREEN,URINE POSITIVE (NEGATIVE); CREATININE,URINE RANDOM 143.25 mg/dL (30-135); OPIATE SCREEN,URINE NEGATIVE (NEGATIVE); PHENCYCLIDINE SCREEN,URINE NEGATIVE (NEGATIVE)
[2023-12-31] MEDS: CALCITONIN 400 UNIT VIAL SQ ONE (21:15)
[2023-12-31] MEDS: FAMOTIDINE 20MG VIAL IV SCH (21:15)
[2023-12-31] MEDS: ACETAMINOPHEN 500 MG TABLET PO PRN (21:24)
[2023-12-31 23:15] LABS: CREATININE 3.9 mg/dL (0.5-1.3); POTASSIUM 3.6 mmol/L (3.5-5.1)
[2024-01-01] VITALS (11 sets, daily range): BP systolic 108–145; BP diastolic 59–87; PULSE 86–112; RESP 16–20; O2SAT 96–99
[2024-01-01] MEDS: POLYETHYLENE GLYCOL 3350 17 GM POWD.PACK PO PRN (01:58)
[2024-01-01 04:56] LABS: BASOPHILS # (AUTO) 0.05 K/uL (0.00-0.20); BASOPHILS % (AUTO) 0.5 % (0.0-5.0); EOSINOPHILS # (AUTO) 0.22 K/uL (0.00-0.70); EOSINOPHILS % (AUTO) 2.1 % (0.0-8.0); HEMATOCRIT 39.6 % (42-54); IMMATURE GRANULOCYTE ABSOLUTE 0.04 K/uL (0-1); LYMPHOCYTES % (AUTO) 19.6 % (21.0-51.0); MEAN CORPUSCULAR HEMOGLOBIN 28.8 pg (27.0-33.0); MEAN CORPUSCULAR HGB CONC 33.1 g/dL (32.0-36.0); MONOCYTES # (AUTO) 0.8 K/uL (0.1-1.0); MONOCYTES % (AUTO) 7.8 % (3.0-13.0); NEUTROPHILS # (AUTO) 7.2 K/uL (1.8-7.7); NEUTROPHILS % (AUTO) 69.6 % (40.0-77.0); PLATELET COUNT (AUTO) 264 K/uL (130-400); RED BLOOD CELL COUNT(AUTO) 4.55 MIL/uL (4.50-6.20); RED CELL DISTRIBUTION WIDTH 13.8 % (11.0-15.5); WHITE BLOOD COUNT (AUTO) 10.3 K/uL (4.8-10.8)
[2024-01-01 06:28] LABS: ALBUMIN 3.4 g/dL (3.5-5.0); BILIRUBIN,TOTAL 0.3 mg/dL (0.2-1.0); CREATININE 3.6 mg/dL (0.5-1.3); MAGNESIUM 1.5 mg/dL (1.80-2.40); POTASSIUM 3.6 mmol/L (3.5-5.1); TOTAL PROTEIN, SERUM 7.3 g/dL (6.0-8.3)
[2024-01-01] MEDS: THIAMINE HCL 100 MG/ML 2ML VIAL IVP SCH (12:23)
[2024-01-01] MEDS: HYDROMORPHONE 0.5 MG SYG (0.5MG/0.5ML) IVP PRN (12:31)
[2024-01-01] MEDS: INSULIN HUMULIN R 100 UNIT/ML 3ML SQ SCH (16:30)
[2024-01-01] MEDS: MAGNESIUM CITRATE 296 ML SOLUTION PO ONE (18:40)
[2024-01-01] MEDS ORDERED: PLEC3TAB2 PO (19:34)
[2024-01-01] MEDS ORDERED: CHLO25TA68 PO (19:34)
[2024-01-01] MEDS: DOCUSATE NA 100MG/10ML UDCUP PO SCH (20:20)
[2024-01-01] MEDS: HEPARIN 5,000 UNIT VIAL SQ SCH (20:24)
[2024-01-02] VITALS (9 sets, daily range): BP systolic 122–150; BP diastolic 78–96; PULSE 86–98; RESP 16–19; O2SAT 97–98
[2024-01-02 09:02] LABS: BASOPHILS # (AUTO) 0.05 K/uL (0.00-0.20); BASOPHILS % (AUTO) 0.5 % (0.0-5.0); EOSINOPHILS # (AUTO) 0.16 K/uL (0.00-0.70); EOSINOPHILS % (AUTO) 1.7 % (0.0-8.0); HEMATOCRIT 36.7 % (42-54); IMMATURE GRANULOCYTE ABSOLUTE 0.03 K/uL (0-1); LYMPHOCYTES # (AUTO) 2.2 K/uL (1.0-4.8); LYMPHOCYTES % (AUTO) 24.1 % (21.0-51.0); MEAN CORPUSCULAR HEMOGLOBIN 29.3 pg (27.0-33.0); MEAN CORPUSCULAR HGB CONC 34.6 g/dL (32.0-36.0); MEAN CORPUSCULAR VOLUME 84.6 fL (79-99); MONOCYTES # (AUTO) 0.8 K/uL (0.1-1.0); MONOCYTES % (AUTO) 8.2 % (3.0-13.0); NEUTROPHILS % (AUTO) 65.2 % (40.0-77.0); PLATELET COUNT (AUTO) 244 K/uL (130-400); RED BLOOD CELL COUNT(AUTO) 4.34 MIL/uL (4.50-6.20); RED CELL DISTRIBUTION WIDTH 13.7 % (11.0-15.5); WHITE BLOOD COUNT (AUTO) 9.2 K/uL (4.8-10.8)
[2024-01-02 09:16] LABS: ALBUMIN 3.1 g/dL (3.5-5.0); BILIRUBIN,TOTAL 0.2 mg/dL (0.2-1.0); CREATININE 2.1 mg/dL (0.5-1.3); POTASSIUM 3.5 mmol/L (3.5-5.1)
[2024-01-02] MEDS: INSULIN GLARGINE 100 UNITS/ML 10 ML VIAL SQ SCH (09:16)
[2024-01-02] MEDS ORDERED: BISACODYL 10 MG SUPP.RECT RC PRN (13:30)
[2024-01-02] MEDS: BISACODYL 10 MG SUPP.RECT RC ONE (14:03)
[2024-01-03] VITALS (8 sets, daily range): BP systolic 140–162; BP diastolic 84–96; PULSE 87–99; RESP 17–20; O2SAT 97–98
[2024-01-03 04:36] LABS: BASOPHILS # (AUTO) 0.06 K/uL (0.00-0.20); BASOPHILS % (AUTO) 0.6 % (0.0-5.0); EOSINOPHILS # (AUTO) 0.14 K/uL (0.00-0.70); EOSINOPHILS % (AUTO) 1.4 % (0.0-8.0); HEMATOCRIT 37.1 % (42-54); IMMATURE GRANULOCYTE ABSOLUTE 0.04 K/uL (0-1); LYMPHOCYTES # (AUTO) 2.3 K/uL (1.0-4.8); LYMPHOCYTES % (AUTO) 23.8 % (21.0-51.0); MEAN CORPUSCULAR HGB CONC 33.4 g/dL (32.0-36.0); MEAN CORPUSCULAR VOLUME 86.7 fL (79-99); MONOCYTES # (AUTO) 0.7 K/uL (0.1-1.0); MONOCYTES % (AUTO) 7.3 % (3.0-13.0); NEUTROPHILS # (AUTO) 6.5 K/uL (1.8-7.7); NEUTROPHILS % (AUTO) 66.5 % (40.0-77.0); PLATELET COUNT (AUTO) 259 K/uL (130-400); RED BLOOD CELL COUNT(AUTO) 4.28 MIL/uL (4.50-6.20); RED CELL DISTRIBUTION WIDTH 13.6 % (11.0-15.5); WHITE BLOOD COUNT (AUTO) 9.8 K/uL (4.8-10.8)
[2024-01-03 04:47] LABS: CREATININE 1.9 mg/dL (0.5-1.3); PHOSPHORUS 1.5 mg/dL (2.5-4.9); POTASSIUM 3.9 mmol/L (3.5-5.1)
[2024-01-03] MEDS: INSULIN HUMULIN R 100 UNIT/ML 3ML SQ SCH (06:51)
[2024-01-03] MEDS ORDERED: BUDESONIDE 0.5 MG/2 ML INH IH PRN (09:30)
[2024-01-03] MEDS: LACTULOSE 20 GM/30 ML UDCUP PO SCH (20:51)
[2024-01-04 03:00] VITALS: BP 162/90; PULSE 100; RESP 20
[2024-01-04 04:17] LABS: BASOPHILS # (AUTO) 0.06 K/uL (0.00-0.20); BASOPHILS % (AUTO) 0.6 % (0.0-5.0); EOSINOPHILS # (AUTO) 0.12 K/uL (0.00-0.70); EOSINOPHILS % (AUTO) 1.2 % (0.0-8.0); IMMATURE GRANULOCYTE ABSOLUTE 0.03 K/uL (0-1); LYMPHOCYTES # (AUTO) 1.8 K/uL (1.0-4.8); MEAN CORPUSCULAR HEMOGLOBIN 28.5 pg (27.0-33.0); MEAN CORPUSCULAR HGB CONC 33.7 g/dL (32.0-36.0); MEAN CORPUSCULAR VOLUME 84.5 fL (79-99); MONOCYTES # (AUTO) 0.7 K/uL (0.1-1.0); MONOCYTES % (AUTO) 6.8 % (3.0-13.0); NEUTROPHILS % (AUTO) 72.1 % (40.0-77.0); PLATELET COUNT (AUTO) 274 K/uL (130-400); RED BLOOD CELL COUNT(AUTO) 4.14 MIL/uL (4.50-6.20); RED CELL DISTRIBUTION WIDTH 13.6 % (11.0-15.5); WHITE BLOOD COUNT (AUTO) 9.7 K/uL (4.8-10.8)
[2024-01-04 04:36] LABS: BILIRUBIN,TOTAL 0.1 mg/dL (0.2-1.0); CREATININE 1.4 mg/dL (0.5-1.3); POTASSIUM 3.8 mmol/L (3.5-5.1); TOTAL PROTEIN, SERUM 6.8 g/dL (6.0-8.3)
[2024-01-04 06:16] VITALS: PULSE 94; RESP 18; O2SAT 98
[2024-01-04] MEDS: INSULIN HUMULIN R 100 UNIT/ML 3ML SQ SCH (07:30)
[2024-01-04 08:00] VITALS: BP 151/91; PULSE 96; RESP 16; O2SAT 97
[2024-01-04 09:33] VITALS: O2SAT 98
[2024-01-04 11:41] VITALS: BP 149/93; PULSE 93; RESP 14
[2024-01-04] MEDS ORDERED: INSLAN SQ (11:41)
== END 2024-01-04 13:14 | disposition home or self-care (01) | DRG 684 ==
LOC: EDH 13:22 → EDHIP 16:14 → 4DH 01-01 01:35 → 4BH 01-02 06:28
PROVIDERS: ADMIT Internal Medicine; ATTEND Internal Medicine
DX: N17.9 Acute kidney failure, unspecified (principal); E83.52 Hypercalcemia; K59.00 Constipation, unspecified; I10 Essential (primary) hypertension; E11.65 Type 2 diabetes mellitus with hyperglycemia; E78.00 Pure hypercholesterolemia, unspecified; F14.90 Cocaine use, unspecified, uncomplicated; R29.6 Repeated falls; Z82.49 Family history of ischemic heart disease and other diseases of the circulatory system; Z83.3 Family history of diabetes mellitus; E86.0 Dehydration; Z90.49 Acquired absence of other specified parts of digestive tract; Z87.891 Personal history of nicotine dependence
CPT/HCPCS: 36415; 70450; 71045; 72220; 74018; 74021; 74176; 76376; 80048; 80053; 80305; 81001; 82306; 82330; 82340; 82397; 82570; 82948; 83036; 83735; 83970; 84100; 84300; 84443; 84484; 84550; 85025; 87040; 93005; 93306; 93356; 94640; 94664; G0378; J0630; J1170; J1644; J1815; J2270; J2405; J3411; J3490; J7030

== ENCOUNTER 2024-04-29 15:01 | Inpatient (IN) | payer BC ==
[~2024-04-29] VITALS: Ht 175.3 cm; Wt 91.9 kg
[~2024-04-29 15:01] MED LIST changes: +ATOR40TA69 PO; -CHLO25TA68 PO; +CLOP-31 PO; -DICL50TA9 PO; -GABA300C PO; +INSLAN SQ; -LISI20TA24 PO; -LOVA20TA3 PO; -METO-296 PO; +METO-391 PO; -METR-172 PO; -ONDA-243 PO; -PANT40TA PO; -PANT40TA54 PO; +PLEC3TAB2 PO; +SACU1TAB PO
[2024-04-29] MEDS: 0.9%NACL 1000ML 1,000 ML IV STA ×2 (15:44→18:59)
[2024-04-29 15:45] LABS: BASOPHILS # (AUTO) 0.03 K/uL (0.00-0.20); BASOPHILS % (AUTO) 0.2 % (0.0-5.0); EOSINOPHILS # (AUTO) 0.02 K/uL (0.00-0.70); EOSINOPHILS % (AUTO) 0.2 % (0.0-8.0); HEMATOCRIT 43.5 % (42-54); IMMATURE GRANULOCYTE ABSOLUTE 0.06 K/uL (0-1); LYMPHOCYTES # (AUTO) 1.2 K/uL (1.0-4.8); LYMPHOCYTES % (AUTO) 8.7 % (21.0-51.0); MEAN CORPUSCULAR HEMOGLOBIN 28.1 pg (27.0-33.0); MEAN CORPUSCULAR HGB CONC 34.7 g/dL (32.0-36.0); MEAN CORPUSCULAR VOLUME 80.9 fL (79-99); MONOCYTES # (AUTO) 0.5 K/uL (0.1-1.0); MONOCYTES % (AUTO) 4.1 % (3.0-13.0); NEUTROPHILS # (AUTO) 11.5 K/uL (1.8-7.7); NEUTROPHILS % (AUTO) 86.3 % (40.0-77.0); PLATELET COUNT (AUTO) 316 K/uL (130-400); RED BLOOD CELL COUNT(AUTO) 5.38 MIL/uL (4.50-6.20); WHITE BLOOD COUNT (AUTO) 13.3 K/uL (4.8-10.8)
[2024-04-29] MEDS: FAMOTIDINE 20MG VIAL IV STA (15:45)
[2024-04-29] MEDS: ondanSETRON 4MG INJ IVP STA (15:45)
[2024-04-29 16:00] LABS: CREATININE 1.2 mg/dL (0.5-1.3); POTASSIUM 4.3 mmol/L (3.5-5.1)
[2024-04-29 16:02] LABS: ALBUMIN 3.8 g/dL (3.5-5.0); BILIRUBIN,TOTAL 0.5 mg/dL (0.2-1.0); TOTAL PROTEIN, SERUM 8.3 g/dL (6.0-8.3)
[2024-04-29 16:20] LABS: WBC MORPHOLOGY CONSISTENT W/DIFF
[2024-04-29] MEDS ORDERED: IOHEXOL-350 75 ML VIAL IV ONE (16:55)
[2024-04-29 18:58] LABS: APPEARANCE,URINE CLEAR (CLEAR); BILIRUBIN,URINE NEGATIVE (NEGATIVE); COLOR,URINE COLORLESS (YELLOW); GLUCOSE, URINE (UA) >=1000 mg/dL (NEGATIVE); KETONES,URINE 40 mg/dL (NEGATIVE); LEUKOCYTE ESTERASE ,URINE NEGATIVE Leu/uL (NEGATIVE); NITRATE,URINE NEGATIVE (NEGATIVE); PROTEIN,URINE 10 mg/dL (NEGATIVE); UROBILINOGEN,URINE 0.2 mg/dL (0.2-1.0)
[2024-04-29 19:01] LABS: AMPHET/METH SCREEN,URINE NEGATIVE (NEGATIVE); BARBITURATE SCREEN, URINE NEGATIVE (NEGATIVE); BENZODIAZEPINES SCREEN,URINE NEGATIVE (NEGATIVE); CANNABINOID SCREEN,URINE NEGATIVE (NEGATIVE); COCAINE SCREEN,URINE POSITIVE (NEGATIVE); OPIATE SCREEN,URINE NEGATIVE (NEGATIVE); PHENCYCLIDINE SCREEN,URINE NEGATIVE (NEGATIVE)
[2024-04-29 19:03] LABS: ADD UA MICROSCOPIC YES
[2024-04-29 19:04] LABS: BACTERIA,URINE RARE /HPF (None Seen); SQUAMOUS EPITHELIAL CELL,UR RARE /HPF (0-2); WBC,URINE 0-1 /HPF (0-1)
[2024-04-29] MEDS ORDERED: PoTASSium chloRIDE 20MEQ/100ML 100 ML IV PRN (22:30)
[2024-04-29] MEDS ORDERED: acetaMINOPHEN 325 MG TAB PO PRN (22:30)
[2024-04-29] MEDS ORDERED: hydrALAZine 20MG/ML VIAL IV PRN (22:30)
[2024-04-29] MEDS ORDERED: DEXTROSE 50%-WATER 50 ML DISP.SYRIN IV PRN (22:30)
[2024-04-29] MEDS ORDERED: GLUCAGON 1MG KIT 1 MG ML IM PRN (22:30)
[2024-04-29 23:00] VITALS: BP 90/70; PULSE 115; RESP 19; TEMP 98.8
[2024-04-29] MEDS: metRONIDazole 500MG/100ML BAG 100 ML IV SCH (23:09)
[2024-04-29] MEDS: 0.9%NACL 1000ML 1,000 ML IV SCH (23:47)
[2024-04-29] MEDS: ondanSETRON 4MG INJ IV PRN (23:53)
[2024-04-29] MEDS: levoFLOXacin 500 MG/D5W 100 ML 100 ML IV SCH (23:53)
[2024-04-30 04:00] VITALS: BP 154/89; PULSE 106; RESP 19; TEMP 98.6
[2024-04-30 04:49] LABS: BASOPHILS # (AUTO) 0.04 K/uL (0.00-0.20); BASOPHILS % (AUTO) 0.4 % (0.0-5.0); EOSINOPHILS # (AUTO) 0.04 K/uL (0.00-0.70); EOSINOPHILS % (AUTO) 0.4 % (0.0-8.0); HEMATOCRIT 40.9 % (42-54); IMMATURE GRANULOCYTE ABSOLUTE 0.05 K/uL (0-1); LYMPHOCYTES # (AUTO) 2.3 K/uL (1.0-4.8); LYMPHOCYTES % (AUTO) 20.7 % (21.0-51.0); MEAN CORPUSCULAR HEMOGLOBIN 28.6 pg (27.0-33.0); MEAN CORPUSCULAR HGB CONC 34.2 g/dL (32.0-36.0); MEAN CORPUSCULAR VOLUME 83.6 fL (79-99); MONOCYTES % (AUTO) 8.9 % (3.0-13.0); NEUTROPHILS # (AUTO) 7.7 K/uL (1.8-7.7); NEUTROPHILS % (AUTO) 69.1 % (40.0-77.0); PLATELET COUNT (AUTO) 309 K/uL (130-400); RED BLOOD CELL COUNT(AUTO) 4.89 MIL/uL (4.50-6.20); RED CELL DISTRIBUTION WIDTH 12.2 % (11.0-15.5); WHITE BLOOD COUNT (AUTO) 11.1 K/uL (4.8-10.8)
[2024-04-30 05:05] LABS: ALBUMIN 3.2 g/dL (3.5-5.0); BILIRUBIN,TOTAL 0.4 mg/dL (0.2-1.0); CREATININE 1.5 mg/dL (0.5-1.3); MAGNESIUM 1.4 mg/dL (1.80-2.40); POTASSIUM 4.3 mmol/L (3.5-5.1); TOTAL PROTEIN, SERUM 7.5 g/dL (6.0-8.3)
[2024-04-30] MEDS: MAGNESIUM 2GM PREMIX 50ML 50 ML IV PRN (05:20)
[2024-04-30 05:24] LABS: HEMOGLOBIN A1C 11.1 % (4.0-6.0)
[2024-04-30] MEDS: INSULIN humuLIN R 100 UNIT/ML 3ML SQ SCH (05:48)
[2024-04-30 06:15] LABS: ERYTHROCYTE SEDIMENTATION RATE 15 MM/HR (0-15)
[2024-04-30 07:54] VITALS: BP 150/81; PULSE 101; RESP 18; TEMP 98.2
[2024-04-30 08:00] VITALS: O2SAT 96
[2024-04-30] MEDS: FAMOTIDINE 20MG VIAL IV SCH (08:58)
[2024-04-30 09:52] LABS: BASOPHILS # (AUTO) 0.04 K/uL (0.00-0.20); BASOPHILS % (AUTO) 0.4 % (0.0-5.0); EOSINOPHILS # (AUTO) 0.03 K/uL (0.00-0.70); EOSINOPHILS % (AUTO) 0.3 % (0.0-8.0); HEMATOCRIT 39.3 % (42-54); IMMATURE GRANULOCYTE ABSOLUTE 0.02 K/uL (0-1); LYMPHOCYTES # (AUTO) 1.6 K/uL (1.0-4.8); LYMPHOCYTES % (AUTO) 15.2 % (21.0-51.0); MEAN CORPUSCULAR HEMOGLOBIN 28.5 pg (27.0-33.0); MEAN CORPUSCULAR HGB CONC 34.4 g/dL (32.0-36.0); MEAN CORPUSCULAR VOLUME 83.1 fL (79-99); MONOCYTES # (AUTO) 0.9 K/uL (0.1-1.0); MONOCYTES % (AUTO) 8.6 % (3.0-13.0); NEUTROPHILS # (AUTO) 7.8 K/uL (1.8-7.7); NEUTROPHILS % (AUTO) 75.3 % (40.0-77.0); PLATELET COUNT (AUTO) 300 K/uL (130-400); RED BLOOD CELL COUNT(AUTO) 4.73 MIL/uL (4.50-6.20); RED CELL DISTRIBUTION WIDTH 12.2 % (11.0-15.5); WHITE BLOOD COUNT (AUTO) 10.3 K/uL (4.8-10.8)
[2024-04-30 11:27] VITALS: BP 147/92; PULSE 103; RESP 18; TEMP 97.8
[2024-04-30] MEDS ORDERED: MAGNESIUM 2GM PREMIX 50ML 50 ML IV SCH (13:30)
[2024-04-30] MEDS ORDERED: PHARMACY COMMUNICATION MISC SCH (13:30)
[2024-04-30] MEDS: BACLOFEN 10 MG TABLET PO SCH (15:15)
[2024-04-30 16:00] VITALS: BP 157/90; PULSE 99; RESP 18; TEMP 98.1
[2024-04-30 20:00] VITALS: BP 143/84; PULSE 87; RESP 17; TEMP 98.2; O2SAT 97
[2024-04-30] MEDS: acetaMINOPHEN 325 MG TAB PO PRN (20:02)
[2024-04-30] MEDS: levoFLOXacin 250 MG/D5W 50ML 50 ML IV SCH (20:02)
[2024-05-01] VITALS: BP 141/84; PULSE 82; RESP 17; TEMP 97.4
[2024-05-01 04:00] VITALS: BP 143/84; PULSE 80; RESP 17; TEMP 97.5
[2024-05-01 04:58] LABS: ALBUMIN 2.9 g/dL (3.5-5.0); BILIRUBIN,TOTAL 0.3 mg/dL (0.2-1.0); CREATININE 1.3 mg/dL (0.5-1.3); MAGNESIUM 1.7 mg/dL (1.80-2.40); POTASSIUM 3.9 mmol/L (3.5-5.1); TOTAL PROTEIN, SERUM 6.7 g/dL (6.0-8.3)
[2024-05-01 07:53] VITALS: O2SAT 99
[2024-05-01 08:00] VITALS: BP 161/92; PULSE 92; RESP 18; TEMP 98
[2024-05-01] MEDS ORDERED: MAGNESIUM 2GM PREMIX 50ML 50 ML IV SCH (09:00)
[2024-05-01] MEDS: INSULIN humuLIN R 100 UNIT/ML 3ML SQ ONE (11:40)
[2024-05-01 12:00] VITALS: BP 134/83; PULSE 96; RESP 16; TEMP 98.3
[2024-05-01] MEDS ORDERED: METR-172 PO (12:33)
[2024-05-01] MEDS ORDERED: metFORmin HCL 500 MG TABLET PO SCH (17:00)
[2024-05-01] MEDS ORDERED: atorVAStatin 40 MG TABLET PO SCH (21:00)
[2024-05-02] MEDS ORDERED: SACUBITRIL/VALSARTAN 1 EACH TABLET PO SCH (09:00)
[2024-05-02] MEDS ORDERED: metOPROLol sucCINATE 50 MG TAB.SR.24H PO SCH (09:00)
[2024-05-02] MEDS ORDERED: cloPIDOgrel 75MG TAB PO SCH (09:00)
== END 2024-05-01 16:10 | disposition home or self-care (01) | DRG 391 ==
LOC: EDH 15:01 → EDHIP 22:03 → 3AH 23:28
PROVIDERS: ADMIT Internal Medicine Sleep Medicine; ATTEND Internal Medicine Sleep Medicine
DX: K57.30 Diverticulosis of large intestine without perforation or abscess without bleeding (principal); R65.11 Systemic inflammatory response syndrome (SIRS) of non-infectious origin with acute organ dysfunction; N17.9 Acute kidney failure, unspecified; E87.1 Hypo-osmolality and hyponatremia; E86.0 Dehydration; E11.65 Type 2 diabetes mellitus with hyperglycemia; I10 Essential (primary) hypertension; E66.9 Obesity, unspecified; F14.10 Cocaine abuse, uncomplicated; R06.6 Hiccough; E78.00 Pure hypercholesterolemia, unspecified; F17.210 Nicotine dependence, cigarettes, uncomplicated; K44.9 Diaphragmatic hernia without obstruction or gangrene; K52.9 Noninfective gastroenteritis and colitis, unspecified; K76.0 Fatty (change of) liver, not elsewhere classified; Z82.3 Family history of stroke; Z90.49 Acquired absence of other specified parts of digestive tract; Z91.199 Patient's noncompliance with other medical treatment and regimen due to unspecified reason
CPT/HCPCS: 36415; 74177; 80053; 80061; 80305; 81001; 82948; 83036; 83690; 83735; 84145; 85025; 85651; 86140; 87040; 96361; 96374; G0378; J1815; J1956; J2405; J3475; J3490; J7030; Q9967

== ENCOUNTER 2024-05-17 19:13 | Emergency (ER) | payer BC ==
[~2024-05-17] VITALS: Ht 172.7 cm; Wt 70.3 kg
[~2024-05-17 19:13] MED LIST changes: -ASPI-1005 PO; -INSLAN SQ; -INSU10VI3 SQ; +METR-172 PO; -NITR0.4T50 SL; -PLEC3TAB2 PO
[2024-05-17 19:15] VITALS: BP 138/90; PULSE 103; RESP 16; TEMP 97.3
[2024-05-17] MEDS: 0.9%NACL 1000ML 1,000 ML IV ONE (19:45)
[2024-05-17] MEDS: PANTOPrazole 40 MG/VIAL IVP ONE (19:45)
--- NOTE | 2024-05-17 19:47 | EKG ---
[facility] Test Date: 2024-05-17 Test Time: 19:43:57 Pat Name: TIERRA REYES Department: [facility] Room: Gender: M Medical Officer: [id number] : 1975 Requested By: LOREN WHITNEY Order Number: [id number] Reading MD: Jmaes Ochoa Measurements Intervals [place] Rate: 98 P: 31 TX: 166 QRS: -29 QRSD: 90 T: 75 QT: 391 QTc: 500 Interpretive Statements Sinus rhythm Probable left atrial enlargement ST elev, probable normal early repol pattern Compared to ECG 02/14/2024 15:41:47 No significant changes Electronically Signed On 05-17-2024 20:19:29 CDT by James Ochoa Please click the below link to view image of tracing.
--- NOTE | 2024-05-17 19:54 | ERN ---
ED Note History of Present Illness Stated Complaint: CHILLS, DIZZINESS, DIARRHEA Chief Complaint: Multiple Complaints Time Seen by MD: 19:44 Dictation: History of present illness: 49-year-old male with past medical history of hypertension, uncontrolled diabetes, cocaine abuse, sigmoid diverticulosis presented to ED with complaints of loose stools for past 4 days, dizziness of 1 day duration. He developed watery loose stools, 5 times a day on average 5 days back and have been experiencing dizziness since yesterday. As per the patient he felt dizzy and he fell down and he thinks he lost consciousness. He also had been experiencing intractable hiccups for past 4 days. He also reports generalized abdominal pain, nausea, vomiting and generalized tiredness. He denies eating any unusual food, denies fever, denies dysuria, denies chest pain, denies palpitations. Allergies: Coded Allergies: No Known Allergies (Unverified Allergy, Unknown, 01/30/21) No Known Drug Allergies (Unverified Allergy, Unknown, 10/28/22) Home Meds Active Scripts Lactobacillus Acidophilus (Probiotic Gold Acidophilus) 1 Billion Cell Capsule, 1 CAP PO DAILY for 15 Days, #15 CAP 0 Refills Prov:LOREN WHITNEY MD 05/17/24 Pantoprazole Sodium (Protonix) 40 Mg Ectab, 1 TAB PO DAILY for 30 Days, #30 TAB 0 Refills Prov:LOREN WHITNEY MD 05/17/24 Metronidazole (Metronidazole) 500 Mg Tablet, 1 TAB PO TID for 5 Days, #15 TAB 0 Refills Prov:ELAINE CRAFT NP 05/01/24 Sacubitril/Valsartan (Entresto 24 mg-26 mg Tablet) 24 Mg-26 Mg Tablet, 1 EACH PO DAILY, #30 TAB Prov:MOOSE GARZON MD 02/22/24 Metoprolol Succinate (Metoprolol Succinate) 50 Mg Tab.er.24h, 50 MG PO DAILY, #30 TAB Prov:MOOSE GARZON MD 02/22/24 Clopidogrel Bisulfate (Plavix) 75 Mg Tablet, 75 MG PO DAILY, #30 TAB Prov:MOOSE GARZON MD 02/22/24 Atorvastatin Calcium (LIPITOR) 40 Mg Tablet, 40 MG PO HS, #30 TAB 0 Refills Prov:MOOSE GARZON MD 02/22/24 Metformin HCl (Metformin HCl) 1,000 Mg Tablet, 1 TAB PO BID, #60 TAB 0 Refills Prov:SAUD RODRIGUEZ AGPCNP 02/22/23 Past Medical History Dictation As per medical records Polysubstance abuse-amphetamine, cocaine, marijuana, alcohol [id number] of the second toe left foot at the metatarsophalangeal joint level. January 2024-admitted for recurrent syncope is found out that he has left ICA occlusion February 2024-left heart catheterization-mild nonischemic cardiomyopathy with LVEF 40-45% Past Medical History: Diabetes-Type II, High Cholesterol, Hypertension Additional Past Medical Hx: HX OF GASTRITIS Surgical History: Cholecystectomy Surgical History Other: RT FOOT SECOND TOE AMP, GASTRIC POLYPS Social History: Smokers, ETOH Review of System Dictation REVIEW OF SYSTEMS Positive for generalized abdominal pain, nausea, vomiting loose stools, dizziness CONSTITUTIONAL: Denies fevers, chills, or night sweats. No unintentional weight loss reported. ENT: No hearing loss, otalgia, otorrhea, rhinitis, rhinorrhea, hoarseness, or sore throat. CARDIOVASCULAR: Denies any exertional angina, dyspnea on exertion, orthopnea, paroxysmal nocturnal dyspnea, palpitations claudication. PULMONARY: Denies any shortness of breath, cough, phlegm / sputum, hemoptysis, pleuritic chest pain. SLEEP: Denies morning headaches, daytime somnolence or napping. Denies difficulty falling asleep, staying asleep, waking from sleep. Denies knowledge of snoring. GASTROINTESTINAL: Denies any type of dysphagia to either liquids or solids. Denies nausea, vomiting, abdominal pain, diarrhea, constipation, blood in stools . NEUROLOGICAL: Denies headache, motor weakness, sensory deficit, vertigo / spinning sensation, gait abnormalities, or tremors. GENITOURINARY: Denies frequency, urgency, nocturia, hematuria or incontinence, low urinary stream, straining to void, urinary intermittency or hesitancy ENDOCRINOLOGY: Denies polyuria, polydipsia, polyphagia or heat / cold intolerance. HEMATOLOGY: Denies thrombophilia / previous clots, or coagulopathy / bleeding disorders. ONCOLOGIC: Denies personal history of malignancy. DERMATOLOGIC: Denies rashes or pruritus. PSYCHIATRIC: Denies any suicidal or homicidal ideation. Denies hallucinations. Initial Vital Sign VS Vital Signs Date Time Temp Pulse Resp B/P (MAP) Pulse Ox O2 Delivery O2 Flow Rate FiO2 05/17/24 19:15 97.3 103 16 138/90 99 Room Air Physical Exam Dictation PHYSICAL EXAM GENERAL APPEARANCE: Well nourished . Awake and alert. Anxious, Oriented to time, place and person. No acute cardiopulmonary distress. HEENT: Head normocephalic , atraumatic. Sclera anicteric . Pupils are round and reactive. Extraocular movements intact . No conjunctival injection. No nasal congestion. No throat congestion . Dry oral mucosa NECK: Supple. No JVD. No thyromegaly. No submental, submandibular, pre- /postauricular, occipital or supraclavicular lymphadenopathy. No carotid bruits. LUNGS: Clear to auscultation bilaterally . No rales, rhonchi or any wheezing. Equal tactile fremitus. Resonant to percussion . CARDIOVASCULAR: Regular rate and rhythm. S1 and S2 normal. No rubs, murmurs or gallops. ABDOMEN: Soft, tender, and nondistended. There is no rebound tenderness, voluntary guarding, or rigidity. ? splenomegaly. Bowel sounds normal in all four quadrants . NEUROLOGICAL: Cranial nerves II-XII grossly intact. Motor is 5/5 in bilateral upper and lower extremities . No sensory deficits. EXTREMITIES: No edema, No cyanosis , No clubbing. Good capillary refill. SKIN: No skin breakdown. No rashes or lesions . Results (Laboratory/Radiology) Laboratory/Radiology Laboratory Tests Test 05/17/24 19:50 White Blood Count 8.3 K/uL (4.8-10.8) Red Blood Count 4.92 MIL/uL (4.50-6.20) Hemoglobin 14.0 g/dL (14.0-18.0) Hematocrit 42.2 % (42-54) Mean Corpuscular Volume 85.8 fL (79-99) Mean Corpuscular Hemoglobin 28.5 pg (27.0-33.0) Mean Corpuscular Hemoglobin Concent 33.2 g/dL (32.0-36.0) Red Cell Distribution Width 12.6 % (11.0-15.5) Platelet Count 277 K/uL (130-400) Mean Platelet Volume 10.2 fL (7.5-10.5) Nucleated Red Blood Cells 0.0 % (0.0-0.19) Sodium Level 132 mmol/L (136-145) L Potassium Level 4.5 mmol/L (3.5-5.1) Chloride Level 100 mmol/L (101-111) L Carbon Dioxide Level 26 mmol/L (21-32) Blood Urea Nitrogen 19 mg/dL (7-18) H Creatinine 1.2 mg/dL (0.5-1.3) Glomerular Filtration Rate Calc 74 mL/min (>90) Random Glucose 350 mg/dL (70-105) H Hemoglobin A1c 11.5 % (4.0-6.0) H Estimated Average Glucose (eAG) 283 mg/dL (70-126) H Total Calcium 8.6 mg/dL (8.5-10.1) Total Bilirubin 0.3 mg/dL (0.2-1.0) Aspartate Amino Transf (AST/SGOT) 14 U/L (10-37) Alanine Aminotransferase (ALT/SGPT) 27 U/L (12-78) Alkaline Phosphatase 71 U/L (50-136) Total Creatine Kinase 59 U/L (21-232) # Troponin I High Sensitivity 13 ng/L (4-75) Total Protein 7.4 g/dL (6.0-8.3) Albumin 3.4 g/dL (3.5-5.0) L Lipase 133 U/L (16-77) H EKG: (+) NSR EKG Comment: Normal sinus rhythm, ventricular rate of 98, [address]-elevation noted in V1 CT Scan Comment: REASON: ABDOMINAL PAIN , LOOSE STOOLS, DIZZY,H/O DIVERTICULOSIS ORDERING PHYSICIAN: LOREN WHITNEY MD PROCEDURE: ABD PEL WO - CT ABDOMEN/PELVIS W/O CONTRAST CT ABDOMEN/PELVIS W/O CONTRAST CLINICAL HISTORY: ABDOMINAL PAIN , LOOSE STOOLS, DIZZY,H/O DIVERTICULOSIS COMPARISON: None TECHNIQUE: Sequential axial images of abdomen and pelvis without contrast and with sagittal and coronal reconstructions. CT was performed with one or more of the following dose reduction techniques: automated exposure control, adjustment of the mA and/or kV according to patient size, or use of iterative reconstruction technique FINDINGS: Lung bases are clear. The liver and spleen are unremarkable. Gallbladder surgically absent. The pancreas and adrenal glands and kidneys and bladder are unremarkable. There is no identified bowel obstruction. There are fluid-filled loops of large and small bowel. Stomach appears unremarkable. There is no free air or free fluid. There is no bulky abdominal or retroperitoneal lymphadenopathy. The appendix is normal. The bony structures demonstrate minimal degenerative change. The prostate gland is unremarkable. IMPRESSION: Findings suggestive of enteritis. The prior cholecystectomy DICTATED BY: CLARISSA KABA DO DATE: 05/17/242129 ELECTRONICALLY SIGNED BY: CLARISSA KABA DO DATE: 05/17/242138 ED Course ED Course Orders Procedure Category Date Status Time Cbc Without LAB 05/17/24 Complete Differential 19:33 Comprehensive LAB 05/17/24 Complete Metabolic Panel 19:33 Troponin I High LAB 05/17/24 Complete Sensitivity 19:33 12 Lead Ekg Tracing- EKG 05/17/24 Resulted Technical 19:33 Ct Abdomen/Pelvis W/O CT 05/17/24 Resulted Contrast 19:33 Drug Screen Urine LAB 05/17/24 Logged 19:33 Creatine Kinase, Total LAB 05/17/24 Complete 19:33 Lipase LAB 05/17/24 Complete 19:33 Hemoglobin A1c LAB 05/17/24 Complete 19:33 0.9%Nacl 1000ml (Ns PHA 05/17/24 Complete 1000ml) 20:00 Pantoprazole 40mg Inj PHA 05/17/24 Complete (Protonix 40mg Inj 20:00 Current Medications Medications (Trade) Dose Ordered Sig/Katharine Route PRN Reason Start Time Stop Time Status Last Admin Dose Admin Pantoprazole Sodium (PROTonix 40MG INJ) 40 mg ONCE ONCE IVP 05/17/24 20:00 05/17/24 20:01 DC 05/17/24 19:45 Sodium Chloride 1,000 ml @ 100 mls/hr Q10H ONCE IV 05/17/24 20:00 05/17/24 22:39 DC 05/17/24 19:45 Vital Signs Date Time Temp Pulse Resp B/P (MAP) Pulse Ox O2 Delivery O2 Flow Rate FiO2 05/17/24 19:15 97.3 103 16 138/90 99 Room Air Medical Decision Making MDM Differential diagnosis : Acute gastroenteritis, acute gastritis, UTI, dehydration Rationale: Tests considered and ordered secondary to shared decision making include: I will re-evaluate the patient after treatment and diagnostic exams have returned to determine whether they require further testing, can be safely discharged home, or need admission for further treatment and evaluation. Given the social determinants of health affecting care, including literacy, access to medical care, prescription drug management, and [id number]-[id number] drugs, I will ensure that treatment plans are tailored accordingly. There are no social concerns with this patient. Risk of complication and/or morbidity or mortality of patient management: None Need for hospitalization: Patient does not meet criteria for hospitalization. Need for emergency major/minor surgery: No Prescription drug management Prescriptions will include symptomatic care Medications-Per medication reconciliation Previous outside records reviewed: Old ER visits. Patient's prior external medical records from other ER visits were reviewed by me as indicated. Prior testing and results from previous visits were reviewed. Prior tests were taken into account with medical decision making and resource utilization, independent historian/historians were used to obtain complete medical history. I independently interpreted the test that were performed, results were reviewed by me and considered findings on radiology. Medical management and examination interpretation discussions was done by me with other qualified healthcare professionals as indicated for the patient's care. Revaluation: After IV fluid and pantoprazole, the hiccups subsided. CT scan showed features suggestive of enteritis. Disposition : Home DX & DISP Disposition: Discharge Departure Impression: Primary Impression: Acute gastroenteritis Additional Impressions: Diabetes mellitus type II, uncontrolled, Hyponatremia Condition: Improved Scripts Lactobacillus Acidophilus (Probiotic Gold Acidophilus) 1 Billion Cell Capsule 1 CAP PO DAILY for 15 Days, #15 CAP 0 Refills Prov: LOREN WHITNEY MD 05/17/24 Pantoprazole Sodium (Protonix) 40 Mg Ectab 1 TAB PO DAILY for 30 Days, #30 TAB 0 Refills Prov: LOREN WHITNEY MD 05/17/24 Additional Instructions: You are diagnosed with acute gastroenteritis. Your started on pantoprazole and probiotics. Follow-up with primary care provider in 1-2 days. Take medications as directed here in the emergency room. It is okay to continue home medications unless otherwise discussed during your visit in the emergency room today. Increase oral hydration. If a wound culture or urine culture was ordered here in the emergency room department, please follow-up with primary care provider and advised them to get reports from our facility. If you had any Juanito wrap/splints that were applied here placed to not remove them until you see your primary care physician. Return to your nearest emergency room if symptoms worsen or if there is no improvement. Call 911 if you need immediate assistance. Referrals: MOIRA QUINN DO (PCP) Time of Disposition: 22:29 ATTESTATION BY PHYSICIAN I PERFORMED THE SUBSTANTIVE PORTION OF THE VISIT. I HAVE REVIEWED AND PERSONALLY MADE AND APPROVED THE MANAGEMENT PLAN THAT IS DOCUMENTED IN THE NOTE BY MYSELF FOR THE A PP. I ACKNOWLEDGED FOR RESPONSIBILITY FOR THE PATIENT'S MANAGEMENT PLAN. LOREN WHITNEY MD May 17, 2024 19:54 GABRIEL DANIELS MD May 18, 2024 05:11
[2024-05-17 19:58] LABS: HEMATOCRIT 42.2 % (42-54); MEAN CORPUSCULAR HEMOGLOBIN 28.5 pg (27.0-33.0); MEAN CORPUSCULAR HGB CONC 33.2 g/dL (32.0-36.0); MEAN CORPUSCULAR VOLUME 85.8 fL (79-99); RED BLOOD CELL COUNT(AUTO) 4.92 MIL/uL (4.50-6.20); RED CELL DISTRIBUTION WIDTH 12.6 % (11.0-15.5); WHITE BLOOD COUNT (AUTO) 8.3 K/uL (4.8-10.8)
[2024-05-17 20:09] LABS: CREATININE 1.2 mg/dL (0.5-1.3); POTASSIUM 4.5 mmol/L (3.5-5.1)
[2024-05-17 20:11] LABS: HEMOGLOBIN A1C 11.5 % (4.0-6.0)
[2024-05-17 20:19] LABS: ALBUMIN 3.4 g/dL (3.5-5.0); BILIRUBIN,TOTAL 0.3 mg/dL (0.2-1.0); TOTAL PROTEIN, SERUM 7.4 g/dL (6.0-8.3)
--- NOTE | 2024-05-17 21:39 | HMCIMG ---
CT ABDOMEN/PELVIS W/O CONTRAST CLINICAL HISTORY: ABDOMINAL PAIN , LOOSE STOOLS, DIZZY,H/O DIVERTICULOSIS COMPARISON: None TECHNIQUE: Sequential axial images of abdomen and pelvis without contrast and with sagittal and coronal reconstructions. CT was performed with one or more of the following dose reduction techniques: automated exposure control, adjustment of the mA and/or kV according to patient size, or use of iterative reconstruction technique FINDINGS: Lung bases are clear. The liver and spleen are unremarkable. Gallbladder surgically absent. The pancreas and adrenal glands and kidneys and bladder are unremarkable. There is no identified bowel obstruction. There are fluid-filled loops of large and small bowel. Stomach appears unremarkable. There is no free air or free fluid. There is no bulky abdominal or retroperitoneal lymphadenopathy. The appendix is normal. The bony structures demonstrate minimal degenerative change. The prostate gland is unremarkable. IMPRESSION: Findings suggestive of enteritis. The prior cholecystectomy
[2024-05-17] MEDS ORDERED: PANT40TA55 PO (22:29)
[2024-05-17] MEDS ORDERED: LACT1CAP89 PO (22:29)
== END 2024-05-17 22:39 | disposition home or self-care (01) ==
LOC: EDH 19:13
DX: K52.9 Noninfective gastroenteritis and colitis, unspecified (principal); E11.65 Type 2 diabetes mellitus with hyperglycemia; E87.1 Hypo-osmolality and hyponatremia; E78.00 Pure hypercholesterolemia, unspecified; F14.10 Cocaine abuse, uncomplicated; F17.200 Nicotine dependence, unspecified, uncomplicated; I10 Essential (primary) hypertension; Z79.02 Long term (current) use of antithrombotics/antiplatelets; Z79.84 Long term (current) use of oral hypoglycemic drugs; Z79.899 Other long term (current) drug therapy; Z90.49 Acquired absence of other specified parts of digestive tract
CPT/HCPCS: 99284; 74176; 96374; 83036; 82550; 84484; 80053; 83690; 85027; 36415; 93005; J7030; J2470

== ENCOUNTER 2024-08-22 14:29 | Emergency (ER) | payer SELFPAY ==
[~2024-08-22] VITALS: Ht 167.6 cm; Wt 95.3 kg
[~2024-08-22 14:29] MED LIST changes: -METF-446 PO; -METR-172 PO; +PANT40TA55 PO
--- NOTE | 2024-08-22 15:22 | HMCIMG ---
Exam Type: CT ABDOMEN/PELVIS W/O CONTRAST Clinical Information: diffused abd pain with associated n/v/d Comparison: None CT Dose Index (CTDI): 10.20 mGy Dose Length Product (DLP): 530.00 total mGy-cm PROTOCOL: Routine noncontrast helical scanning of the abdomen and pelvis was performed at 5mm collimation. Findings: No evidence of nephro or ureterolithiasis is found. No hydronephrosis or ureteral dilatation is seen. The lung bases are clear. The stomach is unremarkable. It shows no wall thickening. No gross ulceration is seen. It is not overly distended. There are no surrounding inflammatory changes. No wall lesions are identified to suggest cancer. The spleen is unremarkable. It is not enlarged. The pancreas shows normal anatomy. It is not fatty replaced. It shows no lesions. The pancreatic duct is not dilated. The gallbladder is unremarkable. It shows no cholelithiasis. The gallbladder wall is normal in thickness. There is no pericholecystic fluid. The is no acute or chronic inflammation noted. The adrenal glands are unremarkable. There is no enlargement. No lesions are noted. The liver is unremarkable. It shows no focal masses. The appendix is unremarkable. It shows no evidence of inflammation. No appendicolith is seen. The small bowel is unremarkable. There is no evidence of dilatation to suggest obstruction. No evidence of adynamic ileus is seen. There is no small bowel wall thickening to suggest enteritis. The colon is unremarkable. The urinary bladder is unremarkable. There is no wall thickening to suggest tumor or inflammation. There are no intraluminal calculi. There are no diverticula. There is no evidence of chronic bladder outlet obstruction. There is no evidence of urinary bladder distention to suggest urinary retention. The other pelvic structures are unremarkable. The bony and vascular structures are unremarkable for the patient's age. IMPRESSION: NEGATIVE CT SCAN OF THE ABDOMEN AND PELVIS. NO RENAL STONES. NO ACUTE PATHOLOGY OR INFLAMMATION SEEN. This study was performed using dose reduction techniques to include automated exposure control and/or adjustment of the mA and/or kV according to patient size.
--- NOTE | 2024-08-22 15:57 | NUR ---
LAC-2.5 ERMD MADE AWARE
[2024-08-22 16:05] LABS: BASOPHILS # (AUTO) 0.11 K/uL (0.00-0.20); BASOPHILS % (AUTO) 0.9 % (0.0-5.0); EOSINOPHILS # (AUTO) 0.13 K/uL (0.00-0.70); EOSINOPHILS % (AUTO) 1.1 % (0.0-8.0); HEMATOCRIT 49.3 % (42-54); IMMATURE GRANULOCYTE ABSOLUTE 0.09 K/uL (0-1); LYMPHOCYTES # (AUTO) 3.1 K/uL (1.0-4.8); LYMPHOCYTES % (AUTO) 25.2 % (21.0-51.0); MEAN CORPUSCULAR HEMOGLOBIN 27.9 pg (27.0-33.0); MEAN CORPUSCULAR HGB CONC 33.3 g/dL (32.0-36.0); MONOCYTES # (AUTO) 0.8 K/uL (0.1-1.0); MONOCYTES % (AUTO) 6.3 % (3.0-13.0); NEUTROPHILS % (AUTO) 65.8 % (40.0-77.0); PLATELET COUNT (AUTO) 299 K/uL (130-400); RED BLOOD CELL COUNT(AUTO) 5.87 MIL/uL (4.50-6.20); RED CELL DISTRIBUTION WIDTH 13.2 % (11.0-15.5); WHITE BLOOD COUNT (AUTO) 12.2 K/uL (4.8-10.8)
[2024-08-22 16:07] LABS: CARBON DIOXIDE 25 mmol/L (21-32); CHLORIDE 98 mmol/L (101-111); CREATININE 1.4 mg/dL (0.5-1.3); GLOMERULAR FILTR. RATE CALC 62 mL/min (>90); GLUCOSE,RANDOM 357 mg/dL (70-105); POTASSIUM 4.2 mmol/L (3.5-5.1); SODIUM SERUM 135 mmol/L (136-145); UREA NITROGEN, BLOOD 31 mg/dL (7-18)
[2024-08-22 16:11] LABS: ALANINE AMINOTRANSFERASE 29 U/L (12-78); ALBUMIN 3.5 g/dL (3.5-5.0); ASPARTATE AMINOTRANSFERASE 14 U/L (10-37); BILIRUBIN,DIRECT < 0.1 mg/dL (0.0-0.3); BILIRUBIN,TOTAL 0.3 mg/dL (0.2-1.0); TOTAL PROTEIN, SERUM 8.4 g/dL (6.0-8.3)
[2024-08-22] MEDS: 0.9%NACL 1000ML 1,000 ML IV ONE (18:24)
--- NOTE | 2024-08-22 18:35 | ERN ---
General Chief Complaint: Abdominal Pain Stated Complaint: ABDOMINAL PAIN,MULTIPLE COMPLAINTS Time Seen by MD: 14:32 Time Seen by Midlevel: 14:32 Source: patient History of Present Illness Initial Comments Patient is a 49-year-old male with a past medical history of type 2 diabetes, hyperlipidemia, and hypertension presenting to the emergency department with diffuse abdominal pain that started two days ago. Associated symptoms include nausea, vomiting, diarrhea. Patient also reports generalized body weakness. Denies any fever, chills, or any other symptoms at this time. Allergies: Coded Allergies: No Known Allergies (Unverified Allergy, Unknown, 01/30/21) No Known Drug Allergies (Unverified Allergy, Unknown, 10/28/22) Home Meds Active Scripts Pantoprazole Sodium (Protonix) 40 Mg Ectab, 1 TAB PO DAILY for 30 Days, #30 TAB 0 Refills Prov:LOREN WHITNEY MD 05/17/24 Sacubitril/Valsartan (Entresto 24 mg-26 mg Tablet) 24 Mg-26 Mg Tablet, 1 EACH PO DAILY, #30 TAB Prov:MOOSE GARZON MD 02/22/24 Metoprolol Succinate (Metoprolol Succinate) 50 Mg Tab.er.24h, 50 MG PO DAILY, #30 TAB Prov:MOOSE GARZON MD 02/22/24 Clopidogrel Bisulfate (Plavix) 75 Mg Tablet, 75 MG PO DAILY, #30 TAB Prov:MOOSE GARZON MD 02/22/24 Atorvastatin Calcium (LIPITOR) 40 Mg Tablet, 40 MG PO HS, #30 TAB 0 Refills Prov:MOOSE GARZON MD 02/22/24 Past Medical History Past Medical History: Diabetes-Type II, High Cholesterol, Hypertension Medical History Other: HX OF GASTRITIS Past Surgical History: Cholecystectomy Surgical History Other: RT FOOT SECOND TOE AMP, GASTRIC POLYPS Social History Social History: Smokers, ETOH ROS Dictation CONSTITUTIONAL: Negative except for HPI HEAD/FACE: Negative except for HPI EENT: Negative except for HPI RESPIRATORY: Negative except for HPI GASTROINTESTINAL/ABDOMINAL: Negative except for HPI GENITOURINARY: Negative except for HPI MUSCULOSKELETAL: Negative except for HPI INTEGUMENTARY: Negative except for HPI NEUROLOGICAL/PSYCH: Negative except for HPI HEMATOLOGIC/LYMPHATIC: Negative except for HPI All Systems Negative, Except as noted above. 13 point review of systems assessed and all negative except for above. Physical Exam Physical Exam Dictation Vital Signs reviewed General Appearance: Alert, oriented x 3, no acute distress, well developed, nourished. Head and Face: non-traumatic. Eyes: PERRL, pink conjunctivas, eyelid no trauma, anterior chamber with arcus senilis. Ears: Pinnas intact and no signs of trauma or erythema ear canals clear and no discharge TM no erythema Nose: No discharge, no bleeding. Oropharynx: Mouth normal, tongue pink, pharynx clear,no erythema, tonsils no exudates, no abscesses noted, mucous membrane moist Neck: Supple, non-tender, no thyromegaly, no masses, no JVD, no bruits Breast:Deferred Chest:No tenderness, no crepitus, no paradoxical movement, no retractions Lungs:Clear, well-ventilated, symmetric, no rales, no wheezing, no rhonchi, no stridor, good breath sounds bilaterally Heart: Regular rate, regular rhythm, no murmur, no gallops Vascular: no peripheral edema, Abdomen: Soft, positive bowel sounds, nondistended, no guarding, nontender, no rebound, no masses no hepatomegaly, no splenomegaly, no Baez's sign, no hernias. Rectal: Deferred Genital: Deferred Neurological: Normal speech, motor function intact, sensory function intact Musculoskeletal: Neck nontender, full range of motion, back nontender, full range of motion, Extremities: nontender, full range of motion Skin: Color pink, dry, no turgor, no rash, no lacerations, no abrasions, no contusions. Lymphatic: Deferred Results Laboratory and Microbiology Lab and Micro Result Laboratory Tests Test 08/22/24 15:40 08/22/24 18:10 White Blood Count 12.2 K/uL (4.8-10.8) H Red Blood Count 5.87 MIL/uL (4.50-6.20) Hemoglobin 16.4 g/dL (14.0-18.0) Hematocrit 49.3 % (42-54) Mean Corpuscular Volume 84.0 fL (79-99) Mean Corpuscular Hemoglobin 27.9 pg (27.0-33.0) Mean Corpuscular Hemoglobin Concent 33.3 g/dL (32.0-36.0) Red Cell Distribution Width 13.2 % (11.0-15.5) Platelet Count 299 K/uL (130-400) Mean Platelet Volume 10.2 fL (7.5-10.5) Immature Granulocyte % (Auto) 0.7 % (0-1) Neutrophils (%) (Auto) 65.8 % (40.0-77.0) Lymphocytes (%) (Auto) 25.2 % (21.0-51.0) Monocytes (%) (Auto) 6.3 % (3.0-13.0) Eosinophils (%) (Auto) 1.1 % (0.0-8.0) Basophils (%) (Auto) 0.9 % (0.0-5.0) Neutrophils # (Auto) 8.0 K/uL (1.8-7.7) H Lymphocytes # (Auto) 3.1 K/uL (1.0-4.8) Monocytes # (Auto) 0.8 K/uL (0.1-1.0) Eosinophils # (Auto) 0.13 K/uL (0.00-0.70) Basophils # (Auto) 0.11 K/uL (0.00-0.20) Absolute Immature Granulocyte (auto 0.09 K/uL (0-1) Nucleated Red Blood Cells 0.0 % (0.0-0.19) Sodium Level 135 mmol/L (136-145) L Potassium Level 4.2 mmol/L (3.5-5.1) Chloride Level 98 mmol/L (101-111) L Carbon Dioxide Level 25 mmol/L (21-32) Blood Urea Nitrogen 31 mg/dL (7-18) H Creatinine 1.4 mg/dL (0.5-1.3) H Glomerular Filtration Rate Calc 62 mL/min (>90) Random Glucose 357 mg/dL (70-105) H Lactic Acid Level 2.5 mmol/L (0.8-2.5) Total Calcium 9.9 mg/dL (8.5-10.1) Total Bilirubin 0.3 mg/dL (0.2-1.0) Direct Bilirubin < 0.1 mg/dL (0.0-0.3) Aspartate Amino Transf (AST/SGOT) 14 U/L (10-37) Alanine Aminotransferase (ALT/SGPT) 29 U/L (12-78) Alkaline Phosphatase 86 U/L (50-136) Total Protein 8.4 g/dL (6.0-8.3) H Albumin 3.5 g/dL (3.5-5.0) Lipase 92 U/L (16-77) H Procalcitonin < 0.05 ng/mL (0.05-0.5) L Urine Color LIGHT-YELLOW (YELLOW) Urine Appearance CLEAR (CLEAR) Urine pH 5.0 (5.0-8.0) Urine Specific [place] 1.028 (1.001-1.031) Urine Protein 20 mg/dL (NEGATIVE) H Urine Glucose (UA) >=1000 mg/dL (NEGATIVE) H Urine Ketones NEGATIVE mg/dL (NEGATIVE) Urine Occult Blood NEGATIVE (NEGATIVE) Urine Nitrate NEGATIVE (NEGATIVE) Urine Bilirubin NEGATIVE mg/dL (NEGATIVE) Urine Urobilinogen 0.2 mg/dL (0.2-1.0) Urine Leukocyte Esterase NEGATIVE Miguel/uL Urine RBC 2-5 /HPF (0-1) H Urine WBC 0-1 /HPF (0-1) Urine Squamous Epithelial Cells RARE /HPF (0-2) Urine Bacteria RARE /HPF (None Seen) Urine Other Casts 1 /LPF (None Seen) Urine Opiates Screen NEGATIVE (NEGATIVE) Urine Barbiturates Screen NEGATIVE (NEGATIVE) Urine Phencyclidine Screen NEGATIVE (NEGATIVE) Urine Amphetamines Screen NEGATIVE (NEGATIVE) Urine Benzodiazepines Screen NEGATIVE (NEGATIVE) Urine Cocaine Screen POSITIVE (NEGATIVE) H Urine Marijuana (THC) Screen NEGATIVE (NEGATIVE) Labs Reviewed?: Yes MDM MDM: Patient is a 49-year-old male with a past medical history of type 2 diabetes, hyperlipidemia, and hypertension presenting to the emergency department with diffuse abdominal pain that started two days ago. Associated symptoms include nausea, vomiting, diarrhea. Patient also reports generalized body weakness. Denies any fever, chills, or any other symptoms at this time. Initial vital signs are remarkable for a heart rate of 119 beats per minute. Blood pressure is 157/102. Patient was afebrile. CBC shows a slightly elevated white blood cell count of 12.2. There was no anemia or thrombocytopenia. Chemistries reveal a sodium of 135 and a chloride of 98. BUN is slightly elevated at 31 with a slight bump in the creatinine at 1.4. Lactic acid is 2.5. Anion gap was normal. Patient was not in DKA. Sugar is 357. Lipase is 92. Procalcitonin is negative. Patient was not septic. Urinalysis not show any evidence of infection. Urine drug screen is remarkable for cocaine. CT scan of the abdomen/pelvis is negative does not reveal any acute pathology. The patient was given 1 L of IV fluids and was discharged home with a diagnosis of mild dehydration and uncontrolled diabetes with hyperglycemia. Differential diagnosis: Gastroenteritis, pancreatitis, acute cholecystitis, diverticulitis There are no social concerns with this patient. Prescription drug management Prescriptions will include: None Medical management and examination interpretation discussions were had by me with other qualified healthcare professionals as indicated for the patient's care. ED Course Orders Procedure Category Date Status Time Cbc With Differential LAB 08/22/24 Complete 14:55 Basic Metabolic Panel LAB 08/22/24 Complete 14:55 Hepatic Function Panel LAB 08/22/24 Complete 14:55 Lipase LAB 08/22/24 Complete 14:55 Lactic Acid LAB 08/22/24 Complete 14:55 Procalcitonin LAB 08/22/24 Complete 14:55 Urinalysis Profile LAB 08/22/24 Complete 14:55 Drug Screen Urine LAB 08/22/24 Complete 14:55 Ct Abdomen/Pelvis W/O CT 08/22/24 Resulted Contrast 14:55 0.9%Nacl 1000ml (Ns PHA 08/22/24 Complete 1000ml) 15:00 Current Medications Medications (Trade) Dose Ordered Sig/Katharine Route PRN Reason Start Time Stop Time Status Last Admin Dose Admin Sodium Chloride 1,000 ml @ 0 mls/hr ONCE ONCE IV 08/22/24 15:00 08/22/24 15:01 DC 08/22/24 18:24 Vital Signs Date Time Temp Pulse Resp B/P (MAP) Pulse Ox O2 Delivery O2 Flow Rate FiO2 08/22/24 19:39 97.2 88 20 142/88 99 Room Air* 0 21 08/22/24 18:09 97.2 119 20 157/102 99 Room Air* 0 21 08/22/24 14:53 97.2 119 20 157/102 99 [place] [address] [place] [id number] IMAGING REPORT Signed PATIENT: TIERRA REYES MR#: [id number] : 1975 SEX: M AGE: 49 LOCATION: ED ORDER 55 STATUS: REG REPORT#: [id number] SERVICE 54 REASON: diffused abd pain with associated n/v/d ORDERING PHYSICIAN: MECHELLE ALEX PROCEDURE: ABD PEL WO - CT ABDOMEN/PELVIS W/O CONTRAST Exam Type: CT ABDOMEN/PELVIS W/O CONTRAST Clinical Information: diffused abd pain with associated n/v/d Comparison: None CT Dose Index (CTDI): 10.20 mGy Dose Length Product (DLP): 530.00 total mGy-cm PROTOCOL: Routine noncontrast helical scanning of the abdomen and pelvis was performed at 5mm collimation. Findings: No evidence of nephro or ureterolithiasis is found. No hydronephrosis or ureteral dilatation is seen. The lung bases are clear. The stomach is unremarkable. It shows no wall thickening. No gross ulceration is seen. It is not overly distended. There are no surrounding inflammatory changes. No wall lesions are identified to suggest cancer. The spleen is unremarkable. It is not enlarged. The pancreas shows normal anatomy. It is not fatty replaced. It shows no lesions. The pancreatic duct is not dilated. The gallbladder is unremarkable. It shows no cholelithiasis. The gallbladder wall is normal in thickness. There is no pericholecystic fluid. The is no acute or chronic inflammation noted. The adrenal glands are unremarkable. There is no enlargement. No lesions are noted. The liver is unremarkable. It shows no focal masses. The appendix is unremarkable. It shows no evidence of inflammation. No appendicolith is seen. The small bowel is unremarkable. There is no evidence of dilatation to suggest obstruction. No evidence of adynamic ileus is seen. There is no small bowel wall thickening to suggest enteritis. The colon is unremarkable. The urinary bladder is unremarkable. There is no wall thickening to suggest tumor or inflammation. There are no intraluminal calculi. There are no diverticula. There is no evidence of chronic bladder outlet obstruction. There is no evidence of urinary bladder distention to suggest urinary retention. The other pelvic structures are unremarkable. The bony and vascular structures are unremarkable for the patient's age. IMPRESSION: NEGATIVE CT SCAN OF THE ABDOMEN AND PELVIS. NO RENAL STONES. NO ACUTE PATHOLOGY OR INFLAMMATION SEEN. This study was performed using dose reduction techniques to include automated exposure control and/or adjustment of the mA and/or kV according to patient size. DICTATED BY: THALIA SALAMANCA MD DATE: 08/22/24 1519 ELECTRONICALLY SIGNED BY: THALIA SALAMANCA MD DATE: 08/22/24 1522 DX & DISP Disposition: Discharge Departure Impression: Primary Impression: Dehydration Additional Impression: Uncontrolled diabetes mellitus with hyperglycemia Condition: Stable Additional Instructions: Your blood work today is consistent with dehydration. Your CT scan of the abdomen/pelvis does not reveal any acute intra-abdominal pathology. Please follow up with your primary care doctor in 2-3 days for repeat evaluation. Referrals: MOIRA QUINN DO (PCP) I have reviewed the case, and I agree with, Diagnosis and Plan I performed the substantive portion of the visit. I have reviewed and pe rsonally made and approve the management plan that is documented in the note by myself or the DEMETRIUS. I acknowledge for responsibility for the patient's management plan. MECHELLE ALEX Aug 22, 2024 18:35
--- NOTE | 2024-08-22 18:36 | NUR ---
PT TO BE D/C'D AFTER FLUIDS
[2024-08-22 18:49] LABS: APPEARANCE,URINE CLEAR (CLEAR); BILIRUBIN,URINE NEGATIVE (NEGATIVE); COLOR,URINE LIGHT-YELLOW (YELLOW); GLUCOSE, URINE (UA) >=1000 mg/dL (NEGATIVE); KETONES,URINE NEGATIVE (NEGATIVE); LEUKOCYTE ESTERASE ,URINE NEGATIVE Leu/uL (NEGATIVE); NITRATE,URINE NEGATIVE (NEGATIVE); OCCULT BLOOD,URINE NEGATIVE (NEGATIVE); PROTEIN,URINE 20 mg/dL (NEGATIVE); UROBILINOGEN,URINE 0.2 mg/dL (0.2-1.0)
[2024-08-22 18:54] LABS: AMPHET/METH SCREEN,URINE NEGATIVE (NEGATIVE); BARBITURATE SCREEN, URINE NEGATIVE (NEGATIVE); BENZODIAZEPINES SCREEN,URINE NEGATIVE (NEGATIVE); CANNABINOID SCREEN,URINE NEGATIVE (NEGATIVE); COCAINE SCREEN,URINE POSITIVE (NEGATIVE); OPIATE SCREEN,URINE NEGATIVE (NEGATIVE); PHENCYCLIDINE SCREEN,URINE NEGATIVE (NEGATIVE)
[2024-08-22 18:59] LABS: ADD UA MICROSCOPIC YES
[2024-08-22 19:02] LABS: BACTERIA,URINE RARE /HPF (None Seen); MUCUS,URINE RARE LPF (None Seen); OTHER CASTS, URINE 1 /LPF (None Seen); SQUAMOUS EPITHELIAL CELL,UR RARE /HPF (0-2); WBC,URINE 0-1 /HPF (0-1)
[2024-08-22 19:39] VITALS: BP 142/88; PULSE 88; RESP 20; TEMP 97.2; O2SAT 99
== END 2024-08-22 19:40 | disposition home or self-care (01) ==
LOC: EDH 14:29
DX: E86.0 Dehydration (principal); E11.65 Type 2 diabetes mellitus with hyperglycemia; E78.00 Pure hypercholesterolemia, unspecified; F17.200 Nicotine dependence, unspecified, uncomplicated; I10 Essential (primary) hypertension; Z79.02 Long term (current) use of antithrombotics/antiplatelets; Z79.899 Other long term (current) drug therapy; Z90.49 Acquired absence of other specified parts of digestive tract
CPT/HCPCS: 99284; 74176; 80076; 80048; 80305; 83690; 85025; 83605; 36415; 84145; 81001; J7030

== ENCOUNTER 2024-09-15 12:27 | Emergency (ER) | payer BC ==
[~2024-09-15] VITALS: Ht 167.6 cm; Wt 95.3 kg
--- NOTE | 2024-09-15 12:44 | EKG ---
[facility] Test Date: 2024-09-15 Test Time: 12:38:59 Pat Name: TIERRA REYES Department: [facility] Room: Gender: M [employer] Consultant: [facility] : 1975 Requested By: GUMARO PENN Order Number: [id number] Reading MD: Autumn Sandoval Measurements Intervals [place] Rate: 104 P: 58 MO: 155 QRS: -5 QRSD: 93 T: 88 QT: 352 QTc: 462 Interpretive Statements Sinus tachycardia Compared to ECG 06/18/2024 09:11:00 T-wave abnormality no longer present Electronically Signed On 09-16-2024 15:37:20 CELLAR HAND by Autumn Sandoval Please click the below link to view image of tracing.
--- NOTE | 2024-09-15 12:47 | ERN ---
General Chief Complaint: Wound Check Stated Complaint: RIGHT FOOT SORE Time Seen by MD: 12:28 History of Present Illness Initial Comments 49-year-old male, diabetes, hypertension, polysubstance abuse, presents for left great toe injury/ wounds. Patient has diabetic nephropathy he was decreased sensation to the feet. He noticed that the left toenail has a wound around the edge yesterday. He denies any fevers or body aches. No other symptoms. He denies trauma. Allergies: Coded Allergies: No Known Allergies (Unverified Allergy, Unknown, 01/30/21) No Known Drug Allergies (Unverified Allergy, Unknown, 10/28/22) Home Meds Active Scripts Pantoprazole Sodium (Protonix) 40 Mg Ectab, 1 TAB PO DAILY for 30 Days, #30 TAB 0 Refills Prov:LOREN WHITNEY MD 05/17/24 Sacubitril/Valsartan (Entresto 24 mg-26 mg Tablet) 24 Mg-26 Mg Tablet, 1 EACH PO DAILY, #30 TAB Prov:MOOSE GARZON MD 02/22/24 Metoprolol Succinate (Metoprolol Succinate) 50 Mg Tab.er.24h, 50 MG PO DAILY, #30 TAB Prov:MOOSE AGRZON MD 02/22/24 Clopidogrel Bisulfate (Plavix) 75 Mg Tablet, 75 MG PO DAILY, #30 TAB Prov:MOOSE GARZON MD 02/22/24 Atorvastatin Calcium (LIPITOR) 40 Mg Tablet, 40 MG PO HS, #30 TAB 0 Refills Prov:MOOSE GARZON MD 02/22/24 Past Medical History Past Medical History: Diabetes-Type II, High Cholesterol, Hypertension Medical History Other: HX OF GASTRITIS Past Surgical History: Cholecystectomy Surgical History Other: RT FOOT SECOND TOE AMP, GASTRIC POLYPS Social History Social History: Smokers, ETOH ROS Dictation CONSTITUTIONAL: No chills, no fever, no weakness, no diaphoresis, no malaise. HEAD/FACE: No signs of trauma. EENT: No eye pain, no blurred vision, no tearing, no double vision, no ear pain, no ear discharge, no nose pain, no nasal congestion, no throat pain, no throat swelling, no mouth pain. RESPIRATORY: No cough, no orthopnea, no SOB, no stridor, no wheezing. CARDIOVASCULAR: No chest pain, no edema, no palpitations, no syncope. GASTROINTESTINAL/ABDOMINAL: No abdominal pain, no constipation, no diarrhea, no nausea, no vomiting. GENITOURINARY: No abnormal discharge, no dysuria, no frequent urination, no hematuria. No complaints of pain in the genitals. MUSCULOSKELETAL: No back pain, no gout, no joint pain, no joint swelling, no muscle pain, no muscle stiffness, no neck pain. INTEGUMENTARY: No change in color, no change in hair/nails, no dryness, no l esion, no lumps, no rash. NEUROLOGICAL/PSYCH: No anxiety, not depressed, no emotional problem, no headache, no numbness, no pre-existing deficit, no history of seizures, no tremors, no weakness. HEMATOLOGIC/LYMPHATIC: Not anemic, no history of blood clots, no apparent bleeding, no bruising, glands not swollen. All Systems Negative, Except as Noted. Physical Exam Physical Exam Dictation VITAL SIGNS: Reviewed. GENERAL APPEARANCE: Alert, oriented x3, no acute distress HEAD AND FACE: Non-traumatic. EYES: PERRL, pink conjunctivas, eyelid no trauma, anterior chamber clear. EARS: Pinnas intact and no signs of trauma or erythema. Ear canals clear and no discharge. TMs no erythema. NOSE: No discharge, no bleeding. OROPHARYNX: Mouth normal, teeth no caries, tongue pink. Pharynx clear, no erythema. Tonsils no exudates, no abscesses noted. Mucous membrane moist. NECK: Supple, non-tender, no thyromegaly, no masses, no JVD, no bruits. BREAST: Deferred. CHEST: No tenderness, no crepitus, no paradoxical movement, no retractions. LUNGS: Clear, well-ventilated, symmetric, no rales, no wheezing, no rhonchi, no stridor, good breath sounds bilaterally. HEART: Regular rate, regular rhythm, no murmur, no gallops. VASCULAR: No peripheral edema. ABDOMEN: Soft, positive bowel sounds, nondistended, no guarding, nontender, no rebound, no masses no hepatomegaly, no splenomegaly, no Baez's sign, no hernias. RECTAL: Deferred. GENITAL: Deferred. NEUROLOGICAL: Normal speech, gross motor function intact, gross sensory function intact. MUSCULOSKELETAL: Neck nontender, full range of motion, back nontender, full range of motion. Left foot of the great toe has area of redness and erythema around the toenail EXTREMITIES: Nontender, full range of motion. SKIN: Color pink, dry, no turgor, no rash, no lacerations, no abrasions, no contusions. LYMPHATICS: Deferred. Results Laboratory and Microbiology Lab and Micro Result Laboratory Tests Test 09/15/24 12:57 White Blood Count 8.3 K/uL (4.8-10.8) Red Blood Count 5.08 MIL/uL (4.50-6.20) Hemoglobin 14.1 g/dL (14.0-18.0) Hematocrit 41.8 % (42-54) L Mean Corpuscular Volume 82.3 fL (79-99) Mean Corpuscular Hemoglobin 27.8 pg (27.0-33.0) Mean Corpuscular Hemoglobin Concent 33.7 g/dL (32.0-36.0) Red Cell Distribution Width 13.2 % (11.0-15.5) Platelet Count 322 K/uL (130-400) Mean Platelet Volume 10.2 fL (7.5-10.5) Immature Granulocyte % (Auto) 0.5 % (0-1) Neutrophils (%) (Auto) 58.3 % (40.0-77.0) Lymphocytes (%) (Auto) 31.8 % (21.0-51.0) Monocytes (%) (Auto) 7.2 % (3.0-13.0) Eosinophils (%) (Auto) 1.2 % (0.0-8.0) Basophils (%) (Auto) 1.0 % (0.0-5.0) Neutrophils # (Auto) 4.8 K/uL (1.8-7.7) Lymphocytes # (Auto) 2.6 K/uL (1.0-4.8) Monocytes # (Auto) 0.6 K/uL (0.1-1.0) Eosinophils # (Auto) 0.10 K/uL (0.00-0.70) Basophils # (Auto) 0.08 K/uL (0.00-0.20) Absolute Immature Granulocyte (auto 0.04 K/uL (0-1) Nucleated Red Blood Cells 0.0 % (0.0-0.19) Sodium Level 137 mmol/L (136-145) Potassium Level 4.7 mmol/L (3.5-5.1) Chloride Level 100 mmol/L (101-111) L Carbon Dioxide Level 26 mmol/L (21-32) Blood Urea Nitrogen 25 mg/dL (7-18) H Creatinine 1.2 mg/dL (0.5-1.3) Glomerular Filtration Rate Calc 74 mL/min (>90) Random Glucose 342 mg/dL (70-105) H Lactic Acid Level 2.2 mmol/L (0.8-2.5) Total Calcium 9.1 mg/dL (8.5-10.1) Total Creatine Kinase 59 U/L (21-232) # Troponin I High Sensitivity 9 ng/L (4-75) C-Reactive Protein, Quantitative 5.70 mg/L (0.5-3.0) H MDM CC: Toe wound right foot 2nd toe Historian: Patient Comorbidities: Diabetes type 2, dyslipidemia, hypertension Limitations by social determinants of health: Uninsured Differential diagnosis: SIRS, sepsis, cellulitis, infection, diabetic ulcer, other. Vital signs: Tachycardic heart rate of 115 otherwise vital signs stable remained stable in the ER Labs ( independently ordered and interpreted by me ): CBC is normal, no shift or bands or leukocytosis. Metabolic panel metabolic panel unremarkable. Glucose 342, the prominent about dioxide is 26 low suspicion for DKA. Troponin is CK are normal. CRP is mildly elevated at 5.7. EKG: Sinus tachycardia rate of 104 normal axis good R-wave progression intervals are stable. No STEMI. Independently interpreted by me. Right foot x-ray ( independently ordered and interpreted by me ): no obvious signs of osteomyelitis, no free air. Chest x-ray ( independently interpreted by me ): No cardiomegaly, focal infiltrates, pleural effusion, cardiomegaly, or other. Treatment in ED: 1 L normal saline No signs of SIRS or sepsis. Likely simple cellulitis or an injury. We will recommend normal wound care and we will prescribe Augmentin. Recommend PCP follow up ED Course Orders Procedure Category Date Status Time Cbc With Differential LAB 09/15/24 In Process 12:35 Blood Cult SERINA 09/15/24 In Process 12:35 Urinalysis Profile LAB 09/15/24 Logged 12:35 Culture Urine SERINA 09/15/24 Logged 12:35 0.9%Nacl 1000ml (Ns PHA 09/15/24 In Process 1000ml) 13:00 Creatine Kinase, Total LAB 09/15/24 Complete 12:35 Troponin I High LAB 09/15/24 Complete Sensitivity 12:35 Lactic Acid LAB 09/15/24 Complete 12:35 Basic Metabolic Panel LAB 09/15/24 Complete 12:35 Crp Quantitative LAB 09/15/24 Complete 12:35 Erythrocyte LAB 09/15/24 In Process Sedimentation Rate 12:35 Drug Screen Urine LAB 09/15/24 Logged 12:35 Chest 1vw RAD 09/15/24 Resulted 12:37 12 Lead Ekg Tracing- EKG 09/15/24 Complete Technical 12:37 Foot Comp 3+Vws Rt RAD 09/15/24 Resulted 13:04 Current Medications Medications (Trade) Dose Ordered Sig/Katharine Route PRN Reason Start Time Stop Time Status Last Admin Dose Admin Sodium Chloride 2,859 ml @ 953 mls/hr ONCE ONCE IV 09/15/24 13:00 09/15/24 15:59 09/15/24 13:15 Vital Signs Date Time Temp Pulse Resp B/P (MAP) Pulse Ox O2 Delivery O2 Flow Rate FiO2 09/15/24 12:31 98.6 115 20 148/93 99 Room Air 0 09/15/24 12:31 98.6 115 20 148/93 98 Room Air* 0 21 DX & DISP Disposition: Discharge Departure Impression: Primary Impression: Diabetes mellitus type II, uncontrolled Additional Impression: Toe infection Condition: Stable Scripts Amoxicillin/Potassium Clav (Amox Tr-K Clv 875-125 mg Tab) 875 Mg-125 Mg Tablet 1 TAB PO BID for 10 Days, #20 TAB 0 Refills Prov: GUMARO PENN DO 09/15/24 Additional Instructions: Your symptoms are consistent with cellulitis, or skin infection. Your vital signs have been stable. Your blood work shows mild inflammation and an elevated blood glucose level. Be sure to take your home blood glucose medications. I have prescribed Augmentin, which is an antibiotic. Please take as prescribed. Keep the wound clean with soap and water. I recommend he follow up with a primary doctor or a fiber optic assembler next week for re- evaluation. Please return to the emergency department as needed. Referrals: MOIRA QUINN DO (PCP) GUMARO PENN DO Sep 15, 2024 12:47
[2024-09-15 13:13] LABS: BASOPHILS # (AUTO) 0.08 K/uL (0.00-0.20); EOSINOPHILS % (AUTO) 1.2 % (0.0-8.0); HEMATOCRIT 41.8 % (42-54); IMMATURE GRANULOCYTE ABSOLUTE 0.04 K/uL (0-1); LYMPHOCYTES # (AUTO) 2.6 K/uL (1.0-4.8); LYMPHOCYTES % (AUTO) 31.8 % (21.0-51.0); MEAN CORPUSCULAR HEMOGLOBIN 27.8 pg (27.0-33.0); MEAN CORPUSCULAR HGB CONC 33.7 g/dL (32.0-36.0); MEAN CORPUSCULAR VOLUME 82.3 fL (79-99); MONOCYTES # (AUTO) 0.6 K/uL (0.1-1.0); MONOCYTES % (AUTO) 7.2 % (3.0-13.0); NEUTROPHILS # (AUTO) 4.8 K/uL (1.8-7.7); NEUTROPHILS % (AUTO) 58.3 % (40.0-77.0); PLATELET COUNT (AUTO) 322 K/uL (130-400); RED BLOOD CELL COUNT(AUTO) 5.08 MIL/uL (4.50-6.20); RED CELL DISTRIBUTION WIDTH 13.2 % (11.0-15.5); WHITE BLOOD COUNT (AUTO) 8.3 K/uL (4.8-10.8)
[2024-09-15] MEDS: 0.9%NACL 1000ML 2,859 ML IV ONE (13:15)
[2024-09-15 13:27] LABS: CREATININE 1.2 mg/dL (0.5-1.3); POTASSIUM 4.7 mmol/L (3.5-5.1)
--- NOTE | 2024-09-15 14:03 | HMCIMG ---
RIGHT FOOT RADIOGRAPHS - 3 VIEWS INDICATION: Right great toe infection COMPARISON: None FINDINGS: AP, lateral, and oblique views. No acute fracture or subluxation identified. No evidence for periosteal reaction, cortical erosive changes, or any abnormal subperiosteal bone resorption. Mild calcific plaque along the runoff arterial vazquez and their respective branches. Midfoot alignment is well maintained. No radiopaque foreign body noted. IMPRESSION: No evidence for fracture or subluxation.
--- NOTE | 2024-09-15 14:04 | HMCIMG ---
PORTABLE CHEST RADIOGRAPH INDICATION: cough COMPARISON: 06/18/2024 FINDINGS: Heart size is normal. The pulmonary vascularity and portia appear normal. No abnormal pulmonary parenchymal opacity or consolidation identified. No significant pleural effusion noted. No pneumothorax detected. IMPRESSION: No radiographic evidence for any acute cardiopulmonary process.
[2024-09-15] MEDS ORDERED: AMOX1TAB16 PO (14:20)
[2024-09-15 14:31] LABS: ERYTHROCYTE SEDIMENTATION RATE 25 MM/HR (0-15)
[2024-09-15 14:36] VITALS: BP 134/71; PULSE 95; RESP 16; TEMP 97.8; O2SAT 97
== END 2024-09-15 14:35 | disposition home or self-care (01) ==
LOC: EDH 12:27
DX: E11.65 Type 2 diabetes mellitus with hyperglycemia (principal); L08.9 Local infection of the skin and subcutaneous tissue, unspecified; E78.00 Pure hypercholesterolemia, unspecified; E11.21 Type 2 diabetes mellitus with diabetic nephropathy; F17.200 Nicotine dependence, unspecified, uncomplicated; I10 Essential (primary) hypertension; Z79.02 Long term (current) use of antithrombotics/antiplatelets; Z79.899 Other long term (current) drug therapy; Z90.49 Acquired absence of other specified parts of digestive tract
CPT/HCPCS: 99284; 96360; 71045; 82550; 84484; 80048; 85025; 85651; 87040 ×2; 83605; 86140; 36415; 73630; 93005; J7030

== ENCOUNTER 2025-01-21 22:07 | Emergency (ER) | payer BC ==
[~2025-01-21] VITALS: Ht 175.3 cm; Wt 100.2 kg
[~2025-01-21 22:07] MED LIST changes: +AMOX1TAB16 PO
--- NOTE | 2025-01-21 22:33 | ERN ---
General Chief Complaint: Testicular Injury/Pain Stated Complaint: C/O RT TESTICULAR PAIN Time Seen by MD: 22:16 Source: patient History of Present Illness Initial Comments Patient is a 49-year-old male who comes in after five days of right scrotal pain . He rates the pain as 10/10 and it is throbbing whenever he stands up. He points to an area in his right scrotum which looks like a spontaneously healed skin abscess. He also states that it is itching and burning whenever he needs to urinate. No other symptoms. Timing/Duration: 1 week Severity: moderate Allergies: Coded Allergies: No Known Allergies (Unverified Allergy, Unknown, 01/30/21) No Known Drug Allergies (Unverified Allergy, Unknown, 10/28/22) Home Meds Active Scripts Amoxicillin/Potassium Clav (Amox Tr-K Clv 875-125 mg Tab) 875 Mg-125 Mg Tablet, 1 TAB PO BID for 10 Days, #20 TAB 0 Refills Prov:GUMARO PENN DO 09/15/24 Pantoprazole Sodium (Protonix) 40 Mg Ectab, 1 TAB PO DAILY for 30 Days, #30 TAB 0 Refills Prov:LOREN WHITNEY MD 05/17/24 Sacubitril/Valsartan (Entresto 24 mg-26 mg Tablet) 24 Mg-26 Mg Tablet, 1 EACH PO DAILY, #30 TAB Prov:MOOSE GARZON MD 02/22/24 Metoprolol Succinate (Metoprolol Succinate) 50 Mg Tab.er.24h, 50 MG PO DAILY, #30 TAB Prov:MOOSE GARZON MD 02/22/24 Clopidogrel Bisulfate (Plavix) 75 Mg Tablet, 75 MG PO DAILY, #30 TAB Prov:MOOSE GARZON MD 02/22/24 Atorvastatin Calcium (LIPITOR) 40 Mg Tablet, 40 MG PO HS, #30 TAB 0 Refills Prov:MOOSE GARZON MD 02/22/24 Past Medical History Past Medical History: Diabetes-Type II, High Cholesterol, Hypertension Medical History Other: HX OF GASTRITIS Past Surgical History: Cholecystectomy Surgical History Other: RT FOOT SECOND TOE AMP, GASTRIC POLYPS Social History Social History: Smokers, ETOH Constitutional: (+) chills, (+) fever EENTM: (-) eye pain, (-) blurred vision, (-) tearing, (-) double vision, (-) ear pain, (-) ear discharge, (-) nose pain, (-) nose congestion, (-) throat pain, (-) Throat swelling, (-) mouth pain, (-) tooth pain, (-) mouth swelling, (-) other documentation Respiratory: (-) cough, (-) orthopnea, (-) short of breath, (-) stridor, (-) wheezing, (-) other documentation Cardiovascular: (-) chest pain, (-) edema, (-) palpitations, (-) syncope, (-) dyspnea on exertion, (-) other documentation Gastrointestinal/Abdominal: (-) nausea, (-) vomiting, (-) diarrhea, (-) abdominal pain, (-) abdominal distention, (-) constipation, (-) rectal bleeding, (-) dark stool/melena, (-) other documentation Genitourinary: (+) dysuria, (+) hematuria Physical Exam General Appearance: (+) moderate distress Orientation: (+) alert Head/Face Trauma: No Eye: bilateral eye normal inspection, bilateral eye PERRL, bilateral eye EOMI Genital Comment Ultrasound of the patient's scrotal sacs shows normal tissues normal blood flow the only finding was hypoechoic structure with peripheral hypervascularity of one 0.4 x 1 x 1 cm abscess corresponding to the area of redness and tenderness on the patient's right scrotal skin. Results Laboratory and Microbiology Lab and Micro Result Laboratory Tests Test 01/21/25 22:35 01/21/25 23:02 Urine Color LIGHT-YELLOW (YELLOW) Urine Appearance CLEAR (CLEAR) Urine pH 6.0 (5.0-8.0) Urine Specific [place] 1.033 (1.001-1.031) Urine Protein NEGATIVE mg/dL (NEGATIVE) Urine Glucose (UA) >=1000 mg/dL (NEGATIVE) H Urine Ketones NEGATIVE mg/dL (NEGATIVE) Urine Occult Blood NEGATIVE (NEGATIVE) Urine Nitrate NEGATIVE (NEGATIVE) Urine Bilirubin NEGATIVE mg/dL (NEGATIVE) Urine Urobilinogen 0.2 mg/dL (0.2-1.0) Urine Leukocyte Esterase NEGATIVE Miguel/uL Urine RBC 2-5 /HPF (0-1) H Urine WBC 0-1 /HPF (0-1) Urine Squamous Epithelial Cells RARE /HPF (0-2) Urine Bacteria FEW /HPF (None Seen) White Blood Count 10.0 K/uL (4.8-10.8) Red Blood Count 5.11 MIL/uL (4.50-6.20) Hemoglobin 13.7 g/dL (14.0-18.0) L Hematocrit 43.0 % (42-54) Mean Corpuscular Volume 84.1 fL (79-99) Mean Corpuscular Hemoglobin 26.8 pg (27.0-33.0) L Mean Corpuscular Hemoglobin Concent 31.9 g/dL (32.0-36.0) L Red Cell Distribution Width 14.2 % (11.0-15.5) Platelet Count 275 K/uL (130-400) Mean Platelet Volume 10.3 fL (7.5-10.5) Immature Granulocyte % (Auto) 0.5 % (0-1) Neutrophils (%) (Auto) 66.7 % (40.0-77.0) Lymphocytes (%) (Auto) 23.5 % (21.0-51.0) Monocytes (%) (Auto) 7.7 % (3.0-13.0) Eosinophils (%) (Auto) 0.8 % (0.0-8.0) Basophils (%) (Auto) 0.8 % (0.0-5.0) Neutrophils # (Auto) 6.7 K/uL (1.8-7.7) Lymphocytes # (Auto) 2.4 K/uL (1.0-4.8) Monocytes # (Auto) 0.8 K/uL (0.1-1.0) Eosinophils # (Auto) 0.08 K/uL (0.00-0.70) Basophils # (Auto) 0.08 K/uL (0.00-0.20) Absolute Immature Granulocyte (auto 0.05 K/uL (0-1) Nucleated Red Blood Cells 0.0 % (0.0-0.19) Sodium Level 145 mmol/L (136-145) Potassium Level 4.6 mmol/L (3.5-5.1) Chloride Level 108 mmol/L (101-111) Carbon Dioxide Level 27 mmol/L (21-32) Blood Urea Nitrogen 22 mg/dL (7-18) H Creatinine 1.3 mg/dL (0.5-1.3) Glomerular Filtration Rate Calc 67 mL/min (>90) Random Glucose 204 mg/dL (70-105) H Total Calcium 9.0 mg/dL (8.5-10.1) MDM Patient has an abscess in the skin of his right scrotum I will discharge him home with antibiotics. ED Course Orders Procedure Category Date Status Time Urinalysis Profile LAB 01/21/25 Complete 22:36 Cbc With Differential LAB 01/21/25 Complete 22:36 Basic Metabolic Panel LAB 01/21/25 Complete 22:36 Us Scrotum & Contents US 01/21/25 Taken 22:39 Ketorolac PHA 01/21/25 Complete Tromethamine 30mg/Ml 23:30 Morphine 2mg Syg PHA 01/22/25 Complete (Morphine 2mg Syg) 01:00 Current Medications Medications (Trade) Dose Ordered Sig/Katharine Route PRN Reason Start Time Stop Time Status Last Admin Dose Admin Ketorolac Tromethamine (toRADol) 30 mg ONCE ONCE IVP 01/21/25 23:30 01/21/25 23:31 DC 01/21/25 23:11 Morphine Sulfate (morPHINE 2MG SYG) 2 mg ONCE ONCE IVP 01/22/25 01:00 01/22/25 01:01 DC Vital Signs Date Time Temp Pulse Resp B/P (MAP) Pulse Ox O2 Delivery O2 Flow Rate FiO2 01/22/25 00:10 78 18 102/66 96 Room Air* 0 21 01/21/25 22:11 99.1 85 20 99/59 96 Room Air DX & DISP Disposition: Discharge Departure Impression: Primary Impression: Abscess of scrotal wall Condition: Stable Scripts Cephalexin Monohydrate (Keflex) 500 Mg Cap 500 MG PO QID for 7 Days, #28 CAP Prov: TOÑO CLEANING MD 01/22/25 Additional Instructions: There is a small skin infection in the right scrotum. I have sent a prescription for antibiotics to your pharmacy for you the pain. The abscess we will heal quicker if you elevate the scrotum on a pillow when you are sitting. You can also treat it with some warm compresses. Please take the antibiotics for the full duration. Please follow-up with your primary care physician if it does not improve in the next week. Please come to the emergency room if the redness on the scrotum spreads to your skin on your stomach. Referrals: SELF,REFERRAL (PCP) TOÑO CLEANING MD Jan 21, 2025 22:33
[2025-01-21 22:47] LABS: APPEARANCE,URINE CLEAR (CLEAR); GLUCOSE, URINE (UA) >=1000 mg/dL (NEGATIVE); LEUKOCYTE ESTERASE ,URINE NEGATIVE Leu/uL (NEGATIVE); NITRATE,URINE NEGATIVE (NEGATIVE); OCCULT BLOOD,URINE NEGATIVE (NEGATIVE)
[2025-01-21 22:48] LABS: ADD UA MICROSCOPIC YES
[2025-01-21 22:49] LABS: SQUAMOUS EPITHELIAL CELL,UR RARE /HPF (0-2)
[2025-01-21 23:07] LABS: IMMATURE GRANULOCYTE ABSOLUTE 0.05 K/uL (0-1); NUCLEATED RED BLOOD CELLS 0.0 % (0.0-0.19); PLATELET COUNT (AUTO) 275 K/uL (130-400); RED BLOOD CELL COUNT(AUTO) 5.11 MIL/uL (4.50-6.20); RED CELL DISTRIBUTION WIDTH 14.2 % (11.0-15.5); WHITE BLOOD COUNT (AUTO) 10.0 K/uL (4.8-10.8)
[2025-01-21 23:13] LABS: CREATININE 1.3 mg/dL (0.5-1.3); GLOMERULAR FILTR. RATE CALC 67.0 mL/min (>90); GLUCOSE,RANDOM 204.0 mg/dL (70-105); SODIUM SERUM 145.0 mmol/L (136-145); UREA NITROGEN, BLOOD 22.0 mg/dL (7-18)
[2025-01-22] MEDS ORDERED: CEPH500B PO (01:15)
--- NOTE | 2025-01-22 01:16 | HMCIMG ---
EXAM: US Scrotum. CLINICAL HISTORY: Right testicle throbbing pain. TECHNIQUE: Real-time ultrasound of the scrotum with color Doppler and image documentation. COMPARISON: None provided. FINDINGS: RIGHT TESTICLE: Normal in size and echogenicity, no abnormal mass. Normal Doppler flow. The right testicle measures 4.1 x 1.8 x 2.7 cm. LEFT TESTICLE: Normal in size and echogenicity, no abnormal mass. Normal Doppler flow. Left testicle measures 4.1 x 1.7 x 2.4 cm. EPIDIDYMIDES: A small 4 x 3 mm right epididymal cyst. The epididymes on the left side are normal in size and demonstrate Doppler flow within normal limits. SCROTUM: A small 1.6 x 1.4 x 1 cm hypoechoic focus in the right scrotal region in the cranial aspect, concerning a small abscess. Unremarkable on the left side. No hydrocele, varicocele, or extratesticular mass is evident. IMPRESSION: A small 1.6 x 1.4 x 1 cm hypoechoic focus in the right scrotal region in the cranial aspect, concerning a small abscess. A small right epididymal cyst. No testicular torsion. /[place]
[2025-01-22 01:25] VITALS: BP 110/74; PULSE 78; RESP 18; TEMP 98.3; O2SAT 98
== END 2025-01-22 01:37 | disposition home or self-care (01) ==
LOC: EDH 22:07
DX: N49.2 Inflammatory disorders of scrotum (principal); E11.9 Type 2 diabetes mellitus without complications; E78.00 Pure hypercholesterolemia, unspecified; I10 Essential (primary) hypertension; F17.200 Nicotine dependence, unspecified, uncomplicated; Z79.02 Long term (current) use of antithrombotics/antiplatelets; Z79.899 Other long term (current) drug therapy; Z90.49 Acquired absence of other specified parts of digestive tract
CPT/HCPCS: 99284; 96374; 80048; 85025; 81001; 36415; 76870; 96375; J1885; J2270